=== PATIENT | female | born 1930 | race Caucasian/White ===

== ENCOUNTER → 2016-04-12 | Outpatient (CLI) | payer MEDICARE, OTHER ==
[~2016-04-12] MED LIST: ASPI81TA82 PO; ATOR40TA PO; CARV6.252 PO; CIPR500T4 PO; DEMA10TA PO; ISOS60 PO; MAGN400T PO; NEXI40CA PO; SYNT75TA PO
[2016-04-12 13:23] LABS: HDL CHOLESTEROL 42.7 MG/DL (40.0-60.0); INDIRECT BILIRUBIN 0.4 MG/DL (0.0-0.8); TOTAL BILIRUBIN ADULT 0.5 MG/DL (0.2-1.0)
== END ==
LOC: PLAB 07:55
PROVIDERS: ATTEND Family Medicine
DX: E78.5 Hyperlipidemia, unspecified (principal); Z79.899 Other long term (current) drug therapy
CPT/HCPCS: 36415; 80061; 80076

== ENCOUNTER → 2016-05-02 | Outpatient (CLI) | payer MEDICARE, OTHER ==
[2016-05-02 12:48] LABS: BACTERIA, URINE RARE /hpf; BLOOD, URINE NEG (NEG); GLUCOSE,URINE NEG (NEG); KETONE, URINE NEG (NEG); NITRITE,URINE NEG (NEG); SQUAMOUS EPITHELIAL CELL URINE <1 /hpf (0-5); TRANSITIONAL EPI CELLS, URINE <1 /hpf; URINE COLOR COLORLESS (YELLW/STRAW)
[2016-05-02 13:13] LABS: RHEUMATOID FACTOR TRIGGER LESS THAN 10.0 IU/ML (0.0-14.9)
[2016-05-03 13:05] LABS: ANA SCREEN POS (NEG)
[2016-05-06 15:52] LABS: SM ANTIBODY <1.0 NEG AI (<1.0 NEGATIVE); SM/RNP ANTIBODY <1.0 NEG AI (<1.0 NEGATIVE)
== END ==
LOC: PLAB 09:20
PROVIDERS: ATTEND Allergy & Immunology
DX: M25.50 Pain in unspecified joint (principal)
CPT/HCPCS: 36415; 81001; 82652; 86038; 86039; 86140; 86147; 86160; 86200; 86225; 86235; 86430

== ENCOUNTER → 2016-05-17 | Outpatient (CLI) | payer MEDICARE, OTHER ==
[2016-05-17 13:23] LABS: BLOOD, URINE NEG (NEG); COMMENT (UR) CULT NOT INDICATED; CULTURE IF INDICATED CULT NOT INDICATED; GLUCOSE,URINE NEG (NEG); KETONE, URINE NEG (NEG); NITRITE,URINE NEG (NEG); URINE COLOR LIGHT-YELLOW (YELLW/STRAW)
[2016-05-21 13:52] LABS: SM ANTIBODY <1.0 NEG AI (<1.0 NEGATIVE); SM/RNP ANTIBODY <1.0 NEG AI (<1.0 NEGATIVE)
== END ==
LOC: PLAB 11:11
PROVIDERS: ATTEND Allergy & Immunology
DX: R76.0 Raised antibody titer (principal); N06.4 Isolated proteinuria with diffuse endocapillary proliferative glomerulonephritis
CPT/HCPCS: 36415; 81001; 86160; 86225; 86235

== ENCOUNTER → 2016-09-04 | Outpatient (CLI) | payer MEDICARE, OTHER ==
[2016-09-04 13:32] LABS: AUTOMATED NEUTROPHIL # 8.1 TH/MM3 (1.8-7.7); BASOPHIL # 0.1 TH/MM3 (0-0.2); BASOPHIL % 0.6 % (0.0-2.0); EOSINOPHIL # 0.3 TH/MM3 (0-0.4); EOSINOPHIL % 2.1 % (0.0-4.0); HEMATOCRIT 40.2 % (35.0-46.0); HEMO FLAGS DIFF FINAL; LYMPH % 22.3 % (9.0-44.0); LYMPHOCYTE # 2.7 TH/MM3 (1.0-4.8); MEAN CELL VOLUME 96.1 FL (80.0-100.0); MEAN CORPUSCULAR HGB CONC 32.2 % (32.0-36.0); MONO % 7.7 % (0.0-8.0); NEUT % 67.3 % (16.0-70.0); PLATELET COUNT 177 TH/MM3 (150-450); RED BLOOD COUNT 4.18 MIL/MM3 (4.00-5.30); RED CELL DISTRIBUTION WIDTH 14.1 % (11.6-17.2); WHITE BLOOD COUNT 12.1 TH/MM3 (4.0-11.0)
[2016-09-04 14:13] LABS: ALT (GPT) 27 U/L (10-53); ANION GAP 7 MEQ/L (5-15); AST (GOT) 25 U/L (15-37); BICARBONATE 26.6 MEQ/L (21.0-32.0); BLOOD UREA NITROGEN 24 MG/DL (7-18); CHLORIDE 109 MEQ/L (98-107); GLOMERULAR FILTRATION RATE 57 ML/MIN (>89); GLUCOSE,FASTING 81 MG/DL (74-99); POTASSIUM 3.8 MEQ/L (3.5-5.1); SODIUM (NA) 143 MEQ/L (136-145)
[2016-09-04 14:15] LABS: ALKALINE PHOSPHATASE 87 U/L (45-117); TOTAL BILIRUBIN ADULT 0.3 MG/DL (0.2-1.0)
[2016-09-06 11:51] LABS: RHEUMATOID FACTOR 12 IU/mL (<14)
[2016-09-06 15:52] LABS: ANA SER QL POSITIVE (NEGATIVE); SJOGRENS AB SSA <1.0 NEG AI (<1.0 NEGATIVE); SJOGRENS AB SSB <1.0 NEG AI (<1.0 NEGATIVE)
[2016-09-07 03:50] LABS: ANA IFA PATTERN CENTROMERE (())
[2016-09-08 23:51] LABS: DS DNA AB(CRITHIDIA) NEGATIVE (NEGATIVE); DS DNA AB(CRITHIDIA)TITER ND (<1:10)
== END ==
LOC: PLAB 09:06
PROVIDERS: ATTEND Allergy & Immunology
DX: M25.50 Pain in unspecified joint (principal)
CPT/HCPCS: 36415; 80053; 85025; 86038; 86039; 86235; 86255; 86256; 86431

== ENCOUNTER → 2016-09-25 | Outpatient (CLI) | payer MEDICARE, OTHER ==
[2016-09-25 13:10] LABS: AUTOMATED NEUTROPHIL # 3.5 TH/MM3 (1.8-7.7); BASOPHIL # 0.1 TH/MM3 (0-0.2); BASOPHIL % 0.7 % (0.0-2.0); EOSINOPHIL # 0.3 TH/MM3 (0-0.4); EOSINOPHIL % 3.7 % (0.0-4.0); HEMATOCRIT 41.2 % (35.0-46.0); HEMO FLAGS DIFF FINAL; LYMPHOCYTE # 2.7 TH/MM3 (1.0-4.8); MEAN CELL VOLUME 94.5 FL (80.0-100.0); MEAN CORPUSCULAR HEMOGLOBIN 31.9 PG (27.0-34.0); MEAN CORPUSCULAR HGB CONC 33.7 % (32.0-36.0); MONO % 8.3 % (0.0-8.0); NEUT % 49.3 % (16.0-70.0); PLATELET COUNT 189 TH/MM3 (150-450); RED BLOOD COUNT 4.35 MIL/MM3 (4.00-5.30); RED CELL DISTRIBUTION WIDTH 13.8 % (11.6-17.2); WHITE BLOOD COUNT 7.2 TH/MM3 (4.0-11.0)
[2016-09-25 13:41] LABS: ANION GAP 7 MEQ/L (5-15); AST (GOT) 29 U/L (15-37); BICARBONATE 27.6 MEQ/L (21.0-32.0); BLOOD UREA NITROGEN 33 MG/DL (7-18); CHLORIDE 108 MEQ/L (98-107); GLOMERULAR FILTRATION RATE 54 ML/MIN (>89); POTASSIUM 4.1 MEQ/L (3.5-5.1); SODIUM (NA) 143 MEQ/L (136-145)
[2016-09-25 13:47] LABS: ALKALINE PHOSPHATASE 80 U/L (45-117); ALT (GPT) 26 U/L (10-53); GLUCOSE,FASTING 95 MG/DL (74-99); HDL CHOLESTEROL 44.4 MG/DL (40.0-60.0); LDL CHOLESTEROL 67 MG/DL (0-99); TOTAL BILIRUBIN ADULT 0.4 MG/DL (0.2-1.0)
== END ==
LOC: PLAB 08:18
PROVIDERS: ATTEND Family Medicine
DX: I10 Essential (primary) hypertension (principal); E78.5 Hyperlipidemia, unspecified; M79.1 Myalgia; M25.50 Pain in unspecified joint
CPT/HCPCS: 36415; 80053; 80061; 85025

== ENCOUNTER → 2017-03-10 | Outpatient (CLI) | payer MEDICARE, OTHER ==
[2017-03-10 12:39] LABS: AUTOMATED NEUTROPHIL # 3.9 TH/MM3 (1.8-7.7); BASOPHIL % 0.3 % (0.0-2.0); EOSINOPHIL # 0.3 TH/MM3 (0-0.4); EOSINOPHIL % 3.4 % (0.0-4.0); HEMATOCRIT 40.4 % (35.0-46.0); HEMO FLAGS DIFF FINAL; LYMPH % 48.1 % (9.0-44.0); LYMPHOCYTE # 4.7 TH/MM3 (1.0-4.8); MEAN CELL VOLUME 95.7 FL (80.0-100.0); MEAN CORPUSCULAR HEMOGLOBIN 32.2 PG (27.0-34.0); MEAN CORPUSCULAR HGB CONC 33.6 % (32.0-36.0); MONO % 7.9 % (0.0-8.0); NEUT % 40.3 % (16.0-70.0); PLATELET COUNT 189 TH/MM3 (150-450); RED BLOOD COUNT 4.22 MIL/MM3 (4.00-5.30); RED CELL DISTRIBUTION WIDTH 13.8 % (11.6-17.2); WHITE BLOOD COUNT 9.8 TH/MM3 (4.0-11.0)
[2017-03-10 12:55] LABS: ANION GAP 8 MEQ/L (5-15); AST (GOT) 21 U/L (15-37); BICARBONATE 29.7 MEQ/L (21.0-32.0); BLOOD UREA NITROGEN 35 MG/DL (7-18); CHLORIDE 105 MEQ/L (98-107); GLOMERULAR FILTRATION RATE 45 ML/MIN (>89); GLUCOSE,FASTING 86 MG/DL (74-99); POTASSIUM 3.3 MEQ/L (3.5-5.1); SODIUM (NA) 143 MEQ/L (136-145)
[2017-03-10 13:00] LABS: ALKALINE PHOSPHATASE 89 U/L (45-117); ALT (GPT) 29 U/L (10-53); TOTAL BILIRUBIN ADULT 0.5 MG/DL (0.2-1.0)
== END ==
LOC: PLAB 09:55
PROVIDERS: ATTEND Allergy & Immunology
DX: Z79.899 Other long term (current) drug therapy (principal); Z86.79 Personal history of other diseases of the circulatory system
CPT/HCPCS: 36415; 80053; 85025; 86140

== ENCOUNTER → 2017-03-17 | Outpatient (CLI) | payer MEDICARE, OTHER | LOC: PLAB 08:27 | PROVIDERS: ATTEND Family Medicine | DX: E87.6 Hypokalemia (principal) | CPT/HCPCS: 36415; 84132 ==

== ENCOUNTER → 2017-04-10 | Outpatient (CLI) | payer MEDICARE, OTHER ==
[2017-04-10 15:33] LABS: AUTOMATED NEUTROPHIL # 4.1 TH/MM3 (1.8-7.7); BASOPHIL # 0.1 TH/MM3 (0-0.2); BASOPHIL % 0.8 % (0.0-2.0); EOSINOPHIL # 0.2 TH/MM3 (0-0.4); EOSINOPHIL % 2.5 % (0.0-4.0); HEMOGLOBIN 13.2 GM/DL (11.6-15.3); LYMPH % 34.7 % (9.0-44.0); LYMPHOCYTE # 2.7 TH/MM3 (1.0-4.8); MEAN CELL VOLUME 97.3 FL (80.0-100.0); MEAN CORPUSCULAR HEMOGLOBIN 33.1 PG (27.0-34.0); MEAN PLATELET VOLUME 8.9 FL (7.0-11.0); MONO % 8.4 % (0.0-8.0); MONOCYTE # 0.7 TH/MM3 (0-0.9); NEUT % 53.6 % (16.0-70.0); PLATELET COUNT 191 TH/MM3 (150-450); RED CELL DISTRIBUTION WIDTH 13.8 % (11.6-17.2); WHITE BLOOD COUNT 7.7 TH/MM3 (4.0-11.0)
[2017-04-10 16:04] LABS: ALBUMIN 3.9 GM/DL (3.4-5.0); ALT (GPT) 27 U/L (10-53); AST (GOT) 28 U/L (15-37); BICARBONATE 29.8 MEQ/L (21.0-32.0); BLOOD UREA NITROGEN 17 MG/DL (7-18); CALCIUM 9.3 MG/DL (8.5-10.1); CHLORIDE 108 MEQ/L (98-107); CHOLESTEROL 140 MG/DL (120-200); CREATININE 1.05 MG/DL (0.50-1.00); GLOMERULAR FILTRATION RATE 49 ML/MIN (>89); GLUCOSE,FASTING 88 MG/DL (74-99); SODIUM (NA) 144 MEQ/L (136-145); TRIGLYCERIDES 143 MG/DL (42-150)
[2017-04-10 16:13] LABS: ALKALINE PHOSPHATASE 97 U/L (45-117); CHOLESTEROL/ HDL RATIO 3.18 RATIO; HDL CHOLESTEROL 43.9 MG/DL (40.0-60.0); LDL CHOLESTEROL 68 MG/DL (0-99); TOTAL BILIRUBIN ADULT 0.5 MG/DL (0.2-1.0); TOTAL PROTEIN 7.4 GM/DL (6.4-8.2)
== END ==
LOC: PLAB 08:21
PROVIDERS: ATTEND Family Medicine
DX: E03.9 Hypothyroidism, unspecified (principal); E78.5 Hyperlipidemia, unspecified; I10 Essential (primary) hypertension
CPT/HCPCS: 36415; 80053; 80061; 84443; 85025

== ENCOUNTER → 2017-06-09 | Outpatient (CLI) | payer MEDICARE, OTHER ==
[2017-06-09 11:55] LABS: AUTOMATED NEUTROPHIL # 4.3 TH/MM3 (1.8-7.7); BASOPHIL # 0.1 TH/MM3 (0-0.2); BASOPHIL % 0.8 % (0.0-2.0); EOSINOPHIL # 0.3 TH/MM3 (0-0.4); EOSINOPHIL % 3.2 % (0.0-4.0); HEMATOCRIT 39.8 % (35.0-46.0); HEMOGLOBIN 13.6 GM/DL (11.6-15.3); LYMPH % 34.5 % (9.0-44.0); LYMPHOCYTE # 2.8 TH/MM3 (1.0-4.8); MEAN CELL VOLUME 95.2 FL (80.0-100.0); MEAN CORPUSCULAR HEMOGLOBIN 32.6 PG (27.0-34.0); MEAN CORPUSCULAR HGB CONC 34.2 % (32.0-36.0); MEAN PLATELET VOLUME 8.6 FL (7.0-11.0); MONO % 8.1 % (0.0-8.0); MONOCYTE # 0.7 TH/MM3 (0-0.9); NEUT % 53.4 % (16.0-70.0); PLATELET COUNT 199 TH/MM3 (150-450); RED BLOOD COUNT 4.18 MIL/MM3 (4.00-5.30); WHITE BLOOD COUNT 8.1 TH/MM3 (4.0-11.0)
[2017-06-09 12:21] LABS: ALBUMIN 3.9 GM/DL (3.4-5.0); AST (GOT) 30 U/L (15-37); BICARBONATE 28.5 MEQ/L (21.0-32.0); BLOOD UREA NITROGEN 24 MG/DL (7-18); CALCIUM 9.3 MG/DL (8.5-10.1); CHLORIDE 105 MEQ/L (98-107); CREATININE 1.13 MG/DL (0.50-1.00); GLOMERULAR FILTRATION RATE 45 ML/MIN (>89); SODIUM (NA) 140 MEQ/L (136-145)
[2017-06-09 12:27] LABS: ALKALINE PHOSPHATASE 99 U/L (45-117); ALT (GPT) 23 U/L (10-53); C-REACTIVE PROTEIN LESS THAN 0.29 MG/DL (0.00-0.30); GLUCOSE,RANDOM 93 MG/DL (74-106); TOTAL BILIRUBIN ADULT 0.6 MG/DL (0.2-1.0); TOTAL PROTEIN 7.5 GM/DL (6.4-8.2)
== END ==
LOC: PLAB 08:12
PROVIDERS: ATTEND Allergy & Immunology
DX: E79.0 Hyperuricemia without signs of inflammatory arthritis and tophaceous disease (principal); Z86.79 Personal history of other diseases of the circulatory system
CPT/HCPCS: 36415; 80053; 84550; 85025; 86140

== ENCOUNTER 2017-07-06 15:10 | Observation (INO) | payer MEDICARE, OTHER ==
[~2017-07-06] VITALS: Ht 157.5 cm; Wt 60.0 kg
[2017-07-06] VITALS (7 sets, daily range): BP systolic 114–128; BP diastolic 59–60; PULSE 67–81; RESP 15–29; TEMP 98.5–101.3; O2SAT 92–96
[2017-07-06] MEDS ORDERED: IODIXANOL 320 MG/ML 10 ML VIAL (for Rad CT) IVCONTRAST ONE (15:11)
--- NOTE | 2017-07-06 15:39 | PD ---
HPI Chief Complaint: General Weakness Time Seen by Provider: 15:21 Travel History International Travel<30 days: No Contact w/Intl Traveler<30days: No Traveled to known affect area: No History of Present Illness HPI Patient comes emergency department for evaluation of just not feeling well that began yesterday. Patient reports associated fever. Patient has anything making symptoms better or worse. Denies any chest pain, shortness of breath, cough, headache, numbness or tingling or, loss change in bowel or bladder, or weakness. Patient reports she is on radiation therapy for squamous cell carcinoma last had a treatment the end of June. Denies any chemotherapy. Patient also has concerns over pain in her bilateral neck that he states comes and goes for a while as well as bilateral foot pain described as achy-like in nature. Denies any radiation. Walking or palpating her feet makes the pain worse. Severity mild. PFSH Past Medical History Hx Anticoagulant Therapy: Yes (ASPIRIN ) AAA: Yes Arthritis: Yes Atrial Fibrillation: Yes Autoimmune Disease: No Heart Rhythm Problems: Yes (pacer) Cancer: No Cardiovascular Problems: Yes High Cholesterol: Yes Chemotherapy: Yes Chest Pain: Yes Congestive Heart Failure: No Cerebrovascular Accident: No Diabetes: No Diminished Hearing: No Endocrine: Yes Gastrointestinal Disorders: Yes GERD: Yes Genitourinary: Yes (bladder tuck.) Headaches: Yes Hiatal Hernia: No Hypertension: Yes Immune Disorder: No Implanted Vascular Access Dvce: Yes Kidney Stones: No Musculoskeletal: Yes Neurologic: Yes Reproductive: No Respiratory: No Immunizations Current: No Migraines: Yes Renal Failure: No Seizures: No Thyroid Disease: Yes Ulcer: No Tetanus Vaccination: Unknown Influenza Vaccination: No Menopausal: Yes Past Surgical History Abdominal Aneurysm Repair: Yes Abdominal Surgery: No AICD: No Arteriovenous Shunt: No Cardiac Surgery: Yes (triple a/ pacer) Ear Surgery: No Endocrine Surgery: No Eye Surgery: Yes (bilat. cateract surgery.) Genitourinary Surgery: Yes (bladder tuck.) Gynecologic Surgery: Yes (hysterectomy) Hysterectomy: Yes Insulin Pump: No Joint Replacement: No Oral Surgery: No Pacemaker: Yes (Medtronic.) Thoracic Surgery: Yes Other Surgery: Yes (medtronic pacemaker) Social History Alcohol Use: No Tobacco Use: No Substance Use: No Allergies-Medications (Allergen,Severity, Reaction): Coded Allergies: No Known Allergies (Unverified , 08/21/15) Reported Meds & Prescriptions Reported Meds & Active Scripts Active Reported Aspirin Adult Low Strength (Aspirin) 81 Mg Tabdr 81 Mg PO BID Lipitor (Atorvastatin Calcium) 40 Mg Tab 40 Mg PO HS Isosorbide Mononitrate ER (Isosorbide Mononitrate) 60 Mg Tab 60 Mg PO BID Losartan (Losartan Potassium) 25 Mg Tab 25 Mg PO DAILY Plaquenil (Hydroxychloroquine Sulfate) 200 Mg Tab 200 Mg PO BID Take with food Coreg (Carvedilol) 12.5 Mg Tab 12.5 Mg PO BID Levothyroxine (Levothyroxine Sodium) 50 Mcg Tab 50 Mcg PO DAILY Zyloprim (Allopurinol) 300 Mg Tab 300 Mg PO DAILY Review of Systems Except as stated in HPI: all other systems reviewed are Neg Physical Exam Narrative GENERAL: Well-developed, well nourished, in no acute distress, and non-ill appearing. SKIN: Focused skin assessment warm and dry. There is a small lesion noted on the occipital region of her scalp no signs of infection of a cancerous lesion. No crepitus or drainage. Minimal redness bilateral feet. They are tender to palpation. No crepitus. Millimeters afebrile. Suspicious for gout. HEAD: Atraumatic. Normocephalic. EYES: Pupils equal and round. EOMI. No scleral icterus. No injection or drainage. ENT: No nasal bleeding or discharge. Mucous membranes pink and moist. NECK: Trachea midline. Supple. No nuclear rigidity. Negative Kernig's and Brudzinski sign. CARDIOVASCULAR: Regular rate and rhythm. No murmur appreciated. RESPIRATORY: No accessory muscle use. No respiratory distress. Clear to auscultation. Breath sounds equal bilaterally. GASTROINTESTINAL: Abdomen soft, non-tender, nondistended, and no guarding. Hepatic and splenic margins not palpable. Normal bowel sounds x4. No pulsatile mass. MUSCULOSKELETAL: No obvious deformities. No clubbing. No cyanosis. No edema. Full range of motion. NEUROLOGICAL: Awake and alert. No obvious cranial nerve deficits. Motor grossly within normal limits. Normal speech. PSYCHIATRIC: Appropriate mood and affect; insight and judgment normal. Data Data Last Documented VS Vital Signs Date Time Temp Pulse Resp B/P (MAP) Pulse Ox O2 Delivery O2 Flow Rate FiO2 07/06/17 18:31 101.1 07/06/17 18:24 71 18 96 Room Air 4/1/18 15:15 2.00 Orders Orders Sepsis Workup Initiated (07/06/17 ) Electrocardiogram (07/06/17 15:21) Complete Blood Count With Diff (07/06/17 15:21) Comprehensive Metabolic Panel (07/06/17 15:21) Prothrombin Time / Inr (Pt) (07/06/17 15:21) Act Partial Throm Time (Ptt) (07/06/17 15:21) Lactic Acid Sepsis Protocol (07/06/17 15:21) Magnesium (Mg) (07/06/17 15:21) Ckmb (Isoenzyme) Profile (07/06/17 15:21) Troponin I (07/06/17 15:21) Urinalysis - C+S If Indicated (07/06/17 15:21) Influenzae A/B Antigen (07/06/17 15:21) Blood Culture (07/06/17 15:21) Chest, Single Ap (07/06/17 15:21) Blood Glucose (07/06/17 15:21) Ecg Monitoring (07/06/17 15:21) Iv Access Insert/Monitor (07/06/17 15:21) Oximetry (07/06/17 15:21) Oxygen Administration (07/06/17 15:21) D-Dimer (07/06/17 15:21) Acetaminophen (Tylenol) (07/06/17 15:45) Ct Pulmonary Angiogram (07/06/17 ) CKMB (07/06/17 15:20) CKMB% (07/06/17 15:20) Urine Culture (07/06/17 16:20) Sodium Polysty Sulfate Liq (Kayexalate L (07/06/17 17:00) Ceftriaxone Inj (Rocephin Inj) (07/06/17 17:00) Iodixanol 320 Inj (Rad Ct) (Visipaque 32 (07/06/17 15:11) Foot, Complete ([id number]) (07/06/17 ) Foot, Complete (Oce7qux) (07/06/17 ) Us Leg Venous Doppler Bilat (07/06/17 ) Insulin Human Regular Inj (Novolin R Inj (07/06/17 19:00) Dextrose 50% In Mac (Vial) Inj (D50w (Vi (07/06/17 19:00) Creeler / Telemetry CALEB.Q8H (07/06/17 18:57) Vital Signs (Adult) Q4H (07/06/17 18:57) Diet Heart Healthy (07/06/17 Dinner) Activity Oob With Assistance (07/06/17 18:57) Admit Order (Ed Use Only) (07/06/17 18:57) Labs Laboratory Tests Test 07/06/17 15:20 07/06/17 15:44 07/06/17 16:20 White Blood Count 10.8 TH/MM3 Red Blood Count 3.87 MIL/MM3 Hemoglobin 12.6 GM/DL Hematocrit 36.8 % Mean Corpuscular Volume 95.2 FL Mean Corpuscular Hemoglobin 32.5 PG Mean Corpuscular Hemoglobin Concent 34.2 % Red Cell Distribution Width 13.8 % Platelet Count 169 TH/MM3 Mean Platelet Volume 8.5 FL Neutrophils (%) (Auto) 65.5 % Lymphocytes (%) (Auto) 24.0 % Monocytes (%) (Auto) 9.8 % Eosinophils (%) (Auto) 0.1 % Basophils (%) (Auto) 0.6 % Neutrophils # (Auto) 7.1 TH/MM3 Lymphocytes # (Auto) 2.6 TH/MM3 Monocytes # (Auto) 1.1 TH/MM3 Eosinophils # (Auto) 0.0 TH/MM3 Basophils # (Auto) 0.1 TH/MM3 CBC Comment DIFF FINAL Differential Comment Prothrombin Time 11.4 SEC Prothromb Time International Ratio 1.1 RATIO Activated Partial Thromboplast Time 22.8 SEC D-Dimer Quantitative (PE/DVT) 2.36 MG/L FEU Blood Urea Nitrogen 26 MG/DL Creatinine 1.20 MG/DL Random Glucose 91 MG/DL Total Protein 7.7 GM/DL Albumin 3.3 GM/DL Calcium Level 8.8 MG/DL Magnesium Level 2.2 MG/DL Alkaline Phosphatase 85 U/L Aspartate Amino Transf (AST/SGOT) 94 U/L Alanine Aminotransferase (ALT/SGPT) 40 U/L Total Bilirubin 1.0 MG/DL Sodium Level 137 MEQ/L Potassium Level 5.9 MEQ/L Chloride Level 104 MEQ/L Carbon Dioxide Level 27.7 MEQ/L Anion Gap 5 MEQ/L Estimat Glomerular Filtration Rate 42 ML/MIN Total Creatine Kinase 216 U/L Creatine Kinase MB LESS THAN 0.5 NG/ML Creatine Kinase MB % 0.2 % Troponin I LESS THAN 0.02 NG/ML Lactic Acid Level 1.0 mmol/L Urine Color YELLOW Urine Turbidity CLEAR Urine pH 5.5 Urine Specific Byron 1.012 Urine Protein 30 mg/dL Urine Glucose (UA) NEG mg/dL Urine Ketones NEG mg/dL Urine Occult Blood TRACE Urine Nitrite NEG Urine Bilirubin NEG Urine Urobilinogen LESS THAN 2.0 MG/DL Urine Leukocyte Esterase MOD Urine RBC 1 /hpf Urine WBC 15 /hpf Urine Squamous Epithelial Cells 1 /hpf Urine Transitional Epithelial Cells 1 /hpf Urine Hyaline Casts 8 /lpf Urine Mucus FEW /lpf Microscopic Urinalysis Comment CATH-CULTURE IND MDM Medical Decision Making Medical Screen Exam Complete: Yes Emergency Medical Condition: Yes Interpretation(s) EKG reviewed by Dr. Andrew shows sinus rhythm with ventricular rate of 68. No STEMI. Differential Diagnosis Influenza, UTI, sepsis, metabolic disturbance, pneumonia, PE, atypical chest pain Narrative Course Patient seen and examined. Initial laboratory radiological studies were ordered. Patient was given Tylenol for fever. Upon review of labs patient was given Rocephin and Kayexalate along with insulin and D50. Discussed all findings and plan of care with patient is agreeable for admission. All questions were answered. Discussed patient with Dr. Andrew, who saw and evaluated the patient is in agreement with plan of care and disposition. Discussed patient with hospitalist who is agreeable to admit the patient. All questions were answered. Patient remained stable throughout ED course. Physician Communication Physician Communication [address] Allison, who is agreeable to admit the patient. Diagnosis Primary Impression: Hyperkalemia Additional Impressions: UTI (urinary tract infection) Qualified Codes: N39.0 - Urinary tract infection, site not specified Fever Qualified Codes: R50.9 - Fever, unspecified Admitting Information Admitting Physician Requests: Observation Condition: Stable Mitchell Simpson Jul 06, 2017 15:38
[2017-07-06] MEDS ORDERED: ACETAMINOPHEN 325 MG TAB PO ONE (15:45)
[2017-07-06] MEDS ORDERED: ISOS60TA PO (15:50)
[2017-07-06] MEDS ORDERED: LIPI40TA PO (15:50)
[2017-07-06] MEDS ORDERED: ASPI81TA16 PO (15:50)
[2017-07-06] MEDS ORDERED: CARV12.5 PO (15:50)
[2017-07-06] MEDS ORDERED: ALLO300 PO (15:50)
[2017-07-06] MEDS ORDERED: LEVO50TA4 PO (15:50)
[2017-07-06] MEDS ORDERED: PLAQ200T PO (15:50)
[2017-07-06] MEDS ORDERED: LOSA25TA PO (15:50)
[2017-07-06 15:55] LABS: AUTOMATED NEUTROPHIL # 7.1 TH/MM3 (1.8-7.7); BASOPHIL # 0.1 TH/MM3 (0-0.2); BASOPHIL % 0.6 % (0.0-2.0); EOSINOPHIL % 0.1 % (0.0-4.0); HEMATOCRIT 36.8 % (35.0-46.0); HEMOGLOBIN 12.6 GM/DL (11.6-15.3); LYMPHOCYTE # 2.6 TH/MM3 (1.0-4.8); MEAN CELL VOLUME 95.2 FL (80.0-100.0); MEAN CORPUSCULAR HEMOGLOBIN 32.5 PG (27.0-34.0); MEAN CORPUSCULAR HGB CONC 34.2 % (32.0-36.0); MEAN PLATELET VOLUME 8.5 FL (7.0-11.0); MONO % 9.8 % (0.0-8.0); MONOCYTE # 1.1 TH/MM3 (0-0.9); NEUT % 65.5 % (16.0-70.0); PLATELET COUNT 169 TH/MM3 (150-450); RED BLOOD COUNT 3.87 MIL/MM3 (4.00-5.30); RED CELL DISTRIBUTION WIDTH 13.8 % (11.6-17.2); WHITE BLOOD COUNT 10.8 TH/MM3 (4.0-11.0)
[2017-07-06 16:18] LABS: D-DIMER 2.36 MG/L FEU (0.00-0.50); INTERNATIONAL NORMALIZED RATIO 1.1 RATIO; PROTHROMBIN TIME - PATIENT 11.4 SEC (9.8-11.6)
--- NOTE | 2017-07-06 16:20 | RADRPT ---
EXAM DATE/TIME: 07/06/2017 15:57 [facility] COMPARISON: CHEST SINGLE AP, August 21, 2015, 15:46. INDICATIONS : Fever from unknown source. MEDICAL HISTORY : Hypertension. Hypothyroidism. Aneurysm, abdominal. SURGICAL HISTORY : Abdominal aortic aneurysm repair. CABG. Pacemaker. ENCOUNTER: Initial ACUITY: 1 day PAIN SCORE: 0/10 LOCATION: Bilateral chest FINDINGS: The chest appears stable. Lungs are hyperinflated but otherwise clear. Thoracic aorta is diffusely ectatic. 2 chamber pacemaker is in stable position. Heart remains within normal in size. CONCLUSION: No acute disease. No significant change has occurred. 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 Pacemaker Monty Kat MD on July 06, 2017 at 16:17 Board Certified Radiologist. This report was verified electronically.
[2017-07-06 16:27] LABS: ALBUMIN 3.3 GM/DL (3.4-5.0); ALKALINE PHOSPHATASE 85 U/L (45-117); ALT (GPT) 40 U/L (10-53); AST (GOT) 94 U/L (15-37); BICARBONATE 27.7 MEQ/L (21.0-32.0); BLOOD UREA NITROGEN 26 MG/DL (7-18); CALCIUM 8.8 MG/DL (8.5-10.1); CHLORIDE 104 MEQ/L (98-107); GLOMERULAR FILTRATION RATE 42 ML/MIN (>89); GLUCOSE,RANDOM 91 MG/DL (74-106); MAGNESIUM 2.2 MG/DL (1.5-2.5); SODIUM (NA) 137 MEQ/L (136-145); TOTAL PROTEIN 7.7 GM/DL (6.4-8.2); TROPONIN I LESS THAN 0.02 NG/ML (0.02-0.05)
[2017-07-06 16:37] LABS: BILIRUBIN, URINE NEG (NEG); BLOOD, URINE TRACE (NEG); GLUCOSE,URINE NEG (NEG); HYALINE CAST, URINE 8 /lpf (RARE); KETONE, URINE NEG (NEG); MUCUS URINE FEW /lpf (OCC); NITRITE,URINE NEG (NEG); PH, URINE 5.5 (5.0-8.5); SQUAMOUS EPITHELIAL CELL URINE 1 /hpf (0-5); TRANSITIONAL EPI CELLS, URINE 1 /hpf; URINE COLOR YELLOW (YELLW/STRAW); URINE LEUKOCYTE ESTERASE MOD (NEG)
[2017-07-06] MEDS ORDERED: SODIUM POLYSTYRENE SULFONATE SUSP 15 GM/60 ML CUP PO ONE (17:00)
[2017-07-06] MEDS ORDERED: cefTRIAXone INJ 1,000 MG in SODIUM CHLORIDE 0.9% INJ 100 ML IV ONE (17:00)
--- NOTE | 2017-07-06 18:27 | RADRPT ---
EXAM DATE/TIME: 07/06/2017 18:08 [facility] COMPARISON: CT PULMONARY ANGIOGRAM, August 21, 2015, 17:05. INDICATIONS : Fever and weakness. IV CONTRAST: 75 cc Visipaque (iodixanol) IV RADIATION DOSE: 8.96 CTDIvol (mGy) MEDICAL HISTORY : Aneurysm, abdominal. Hypertension. Brain cancer Thoracic anuersym SURGICAL HISTORY : Pacemaker. ENCOUNTER: Initial ACUITY: 1 day PAIN SCALE: 0/10 LOCATION: chest TECHNIQUE: Volumetric scanning of the chest was performed using a pulmonary embolism protocol MIP images were re constructed. Using automated exposure control and adjustment of the mA and/or kV according to patien t size, radiation dose was kept as low as reasonably achievable to obtain optimal diagnostic quality images. DICOM format image data is available electronically for review and comparison. Follow-up recommendations for detected pulmonary nodules are based at a minimum on nodule size and pa tient risk factors according to Fleischner Society Guidelines. FINDINGS: There are mild dependent atelectatic changes seen. There is fusiform dilatation of the ascending and descending thoracic aorta, atherosclerotic calcifications and coronary artery calcification identifie d. There is no evidence for pulmonary embolism. The ascending aorta has a maximal transverse dimensio n of 4.7 cm at the arch, increased from 2016. Proximal descending thoracic aorta has a maximal transv erse dimension of 4.5 cm, previously 4.35 cm. There is the attenuation of the proximal descending tho racic aorta is heterogeneous, and the possibility of an aortic dissection at this level is difficult to exclude. It is incompletely evaluated on this study. There is a cyst in the left lobe of the liver . The osseous structures are intact. CONCLUSION: Thoracic aortic aneurysmal dilatation is noted and atherosclerosis. An aortic dissection is not exclu ded. There does appear to be some heterogeneous attenuation of the proximal descending thoracic aorta . No evidence for pulmonary embolus. Kamaljit Campoverde MD on July 06, 2017 at 18:21 Board Certified Radiologist. This report was verified electronically.
[2017-07-06] MEDS ORDERED: DEXTROSE 50% IN WATER 50 ML VIAL(D50) IV PUSH ONE (19:00)
[2017-07-06] MEDS ORDERED: INSULIN HUMAN REGULAR 1,000 UNITS/10 ML VIAL IV PUSH ONE (19:00)
--- NOTE | 2017-07-06 19:13 | RADRPT ---
EXAM DATE/TIME: 07/06/2017 18:56 [facility] COMPARISON: No previous studies available for comparison. INDICATIONS : Pain in left foot. MEDICAL HISTORY : None. SURGICAL HISTORY : Bunion srugery 1st toe. ENCOUNTER: Initial ACUITY: 1 day PAIN SCORE: 3/10 LOCATION: Left foot FINDINGS: There are postsurgical changes along the first metatarsal from previous bunion surgery. Plate and scr ew fixation of the base of the first metatarsal noted. There are severe arthritic changes at the firs t MTP joint as well as moderate degenerative changes at the second MTP joint. No acute fracture or di slocation. There is soft tissue calcification seen posterior to the calcaneus. Tiny plantar calcaneal spur. CONCLUSION: No acute disease. Kamaljit Campoverde MD on July 06, 2017 at 19:10 Board Certified Radiologist. This report was verified electronically.
--- NOTE | 2017-07-06 19:16 | RADRPT ---
EXAM DATE/TIME: 07/06/2017 18:56 [facility] COMPARISON: FOOT LEFT COMPLETE ([id number]), July 06, 2017, 18:56. INDICATIONS : Pain in right foot. MEDICAL HISTORY : None. SURGICAL HISTORY : Bunion surgery. ENCOUNTER: Initial ACUITY: 1 day PAIN SCORE: 3/10 LOCATION: Right foot FINDINGS: There are postsurgical changes from previous bunionectomy at the first metatarsal and osteotomy with plate and screw fixation of the base of the first metatarsal. Severe degenerative changes of the firs t MTP joint. Bone density is diminished. No acute fracture or dislocation. Plantar calcaneal spur. CONCLUSION: No acute disease. Kamaljit Campoverde MD on July 06, 2017 at 19:14 Board Certified Radiologist. This report was verified electronically.
--- NOTE | 2017-07-06 19:48 | PD ---
Physical Exam Narrative General: The patient is a well-developed well-nourished female in no acute distress. Head and Neck exam: Head is normocephalic atraumatic. Eyes: EOMI, pupils are equal round and reactive to light. Nose: Midline septum with pink mucous membranes Mouth: Dentition unremarkable. Moist mucus membranes. Posterior oropharynx is not erythematous. No tonsillar hypertrophy. Uvula midline. Airway patent. Neck: No palpable lymphadenopathy. The patient reports having tenderness on palpation along the posterior cervical paraspinal musculature bilaterally. No nuchal rigidity. No thyromegaly. No spinous process tenderness to palpation. No step-off or crepitus. No erythema or ecchymosis. Negative Brudzinski, negative Kernig sign. Cardiovascular: Regular rate and rhythm with a 2/6 systolic murmur. No gallops or rubs. No pulse deficit to the extremities on simultaneous auscultation and palpation of her radial artery. Lungs: Clear to auscultation bilaterally. No wheezes, rhonchi, or rales. Abdomen: Soft, without tenderness to palpation in all 4 quadrants of the abdomen. No guarding, rebound, or rigidity. Normal bowel sounds are audible. No tenderness on palpation of McBurney's point. Extremities: No clubbing, cyanosis, or edema. 2+ pulses in all 4 extremities. No calf tenderness on palpation. Neurologic Exam: Cranial nerves 2-12 were intact on exam. Strength is 5/5 in all 4 extremities. No sensory deficits noted. Negative straight leg raise bilaterally. Skin Exam: No rash noted. Intact skin that is warm and dry. Data Data Last Documented VS Vital Signs Date Time Temp Pulse Resp B/P (MAP) Pulse Ox O2 Delivery O2 Flow Rate FiO2 07/06/17 18:31 101.1 07/06/17 18:24 71 18 96 Room Air 07/06/17 15:15 2.00 Orders Orders Sepsis Workup Initiated (07/06/17 ) Electrocardiogram (07/06/17 15:21) Complete Blood Count With Diff (07/06/17 15:21) Comprehensive Metabolic Panel (07/06/17 15:21) Prothrombin Time / Inr (Pt) (07/06/17 15:21) Act Partial Throm Time (Ptt) (07/06/17 15:21) Lactic Acid Sepsis Protocol (07/06/17 15:21) Magnesium (Mg) (07/06/17 15:21) Ckmb (Isoenzyme) Profile (07/06/17 15:21) Troponin I (07/06/17 15:21) Urinalysis - C+S If Indicated (07/06/17 15:21) Influenzae A/B Antigen (07/06/17 15:21) Blood Culture (07/06/17 15:21) Chest, Single Ap (07/06/17 15:21) Blood Glucose (07/06/17 15:21) Ecg Monitoring (07/06/17 15:21) Iv Access Insert/Monitor (07/06/17 15:21) Oximetry (07/06/17 15:21) Oxygen Administration (07/06/17 15:21) D-Dimer (07/06/17 15:21) Acetaminophen (Tylenol) (07/06/17 15:45) Ct Pulmonary Angiogram (07/06/17 ) CKMB (07/06/17 15:20) CKMB% (07/06/17 15:20) Urine Culture (07/06/17 16:20) Sodium Polysty Sulfate Liq (Kayexalate L (07/06/17 17:00) Ceftriaxone Inj (Rocephin Inj) (07/06/17 17:00) Iodixanol 320 Inj (Rad Ct) (Visipaque 32 (07/06/17 15:11) Foot, Complete ([id number]) (07/06/17 ) Foot, Complete (Tcn2dpj) (07/06/17 ) Us Leg Venous Doppler Bilat (07/06/17 ) Insulin Human Regular Inj (Novolin R Inj (07/06/17 19:00) Dextrose 50% In Mac (Vial) Inj (D50w (Vi (07/06/17 19:00) Photo Lab Specialist / Telemetry CALEB.Q8H (07/06/17 18:57) Vital Signs (Adult) Q4H (07/06/17 18:57) Diet Heart Healthy (07/06/17 Dinner) Activity Oob With Assistance (07/06/17 18:57) Admit Order (Ed Use Only) (07/06/17 18:57) Uric Acid (07/06/17 15:20) Labs Laboratory Tests Test 07/06/17 15:20 07/06/17 15:44 07/06/17 16:20 White Blood Count 10.8 TH/MM3 Red Blood Count 3.87 MIL/MM3 Hemoglobin 12.6 GM/DL Hematocrit 36.8 % Mean Corpuscular Volume 95.2 FL Mean Corpuscular Hemoglobin 32.5 PG Mean Corpuscular Hemoglobin Concent 34.2 % Red Cell Distribution Width 13.8 % Platelet Count 169 TH/MM3 Mean Platelet Volume 8.5 FL Neutrophils (%) (Auto) 65.5 % Lymphocytes (%) (Auto) 24.0 % Monocytes (%) (Auto) 9.8 % Eosinophils (%) (Auto) 0.1 % Basophils (%) (Auto) 0.6 % Neutrophils # (Auto) 7.1 TH/MM3 Lymphocytes # (Auto) 2.6 TH/MM3 Monocytes # (Auto) 1.1 TH/MM3 Eosinophils # (Auto) 0.0 TH/MM3 Basophils # (Auto) 0.1 TH/MM3 CBC Comment DIFF FINAL Differential Comment Prothrombin Time 11.4 SEC Prothromb Time International Ratio 1.1 RATIO Activated Partial Thromboplast Time 22.8 SEC D-Dimer Quantitative (PE/DVT) 2.36 MG/L FEU Blood Urea Nitrogen 26 MG/DL Creatinine 1.20 MG/DL Random Glucose 91 MG/DL Total Protein 7.7 GM/DL Albumin 3.3 GM/DL Calcium Level 8.8 MG/DL Magnesium Level 2.2 MG/DL Uric Acid 6.7 MG/DL Alkaline Phosphatase 85 U/L Aspartate Amino Transf (AST/SGOT) 94 U/L Alanine Aminotransferase (ALT/SGPT) 40 U/L Total Bilirubin 1.0 MG/DL Sodium Level 137 MEQ/L Potassium Level 5.9 MEQ/L Chloride Level 104 MEQ/L Carbon Dioxide Level 27.7 MEQ/L Anion Gap 5 MEQ/L Estimat Glomerular Filtration Rate 42 ML/MIN Total Creatine Kinase 216 U/L Creatine Kinase MB LESS THAN 0.5 NG/ML Creatine Kinase MB % 0.2 % Troponin I LESS THAN 0.02 NG/ML Lactic Acid Level 1.0 mmol/L Urine Color YELLOW Urine Turbidity CLEAR Urine pH 5.5 Urine Specific [place] 1.012 Urine Protein 30 mg/dL Urine Glucose (UA) NEG mg/dL Urine Ketones NEG mg/dL Urine Occult Blood TRACE Urine Nitrite NEG Urine Bilirubin NEG Urine Urobilinogen LESS THAN 2.0 MG/DL Urine Leukocyte Esterase MOD Urine RBC 1 /hpf Urine WBC 15 /hpf Urine Squamous Epithelial Cells 1 /hpf Urine Transitional Epithelial Cells 1 /hpf Urine Hyaline Casts 8 /lpf Urine Mucus FEW /lpf Microscopic Urinalysis Comment CATH-CULTURE IND MDM Medical Record Reviewed: Yes Supervised Visit with SHERRIE: Yes Interpretation(s) Last Impressions Chest X-Ray 07/06/17 1521 Signed Impressions: Service Date/Time: Thursday, July 06, 2017 15:57 - CONCLUSION: No acute disease. No significant change has occurred. 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 Pacemaker Monty Kat MD Lower Extremity Ultrasound 07/06/17 0000 Signed Impressions: Service Date/Time: Thursday, July 06, 2017 19:13 - CONCLUSION: Normal examination. Kamaljit Campoverde MD Foot X-Ray 07/06/17 0000 Signed Impressions: Service Date/Time: Thursday, July 06, 2017 18:56 - CONCLUSION: No acute disease. Kamaljit Campoverde MD Foot X-Ray 07/06/17 0000 Signed Impressions: Service Date/Time: Thursday, July 06, 2017 18:56 - CONCLUSION: No acute disease. Kamaljit Campoverde MD CT Angiography 07/06/17 0000 Signed Impressions: Service Date/Time: Thursday, July 06, 2017 18:08 - CONCLUSION: Thoracic aortic aneurysmal dilatation is noted and atherosclerosis. An aortic dissection is not excluded. There does appear to be some heterogeneous attenuation of the proximal descending thoracic aorta. No evidence for pulmonary embolus. Kamaljit Campoverde MD Vital Signs Date Time Temp Pulse Resp B/P (MAP) Pulse Ox O2 Delivery O2 Flow Rate FiO2 07/06/17 18:31 101.1 07/06/17 18:24 71 18 115/59 (77) 96 Room Air 07/06/17 15:55 72 29 126/59 (81) 96 Room Air 07/06/17 15:38 101.3 07/06/17 15:15 96 Nasal Cannula 2.00 07/06/17 15:15 99.0 67 21 121/60 (80) 07/06/17 15:15 101.3 67 23 121/60 (80) 96 Nasal Cannula 2.00 07/06/17 15:15 Room Air Narrative Course I, Dr. Johnson, have reviewed the advance practice practitioner's documentation and am in agreement, met with the patient face to face, made the diagnosis, and the medical decision making was done by me. The patient was initially evaluated by Steve, the physician staff physical therapy assistant. Please see their complete history and physical. *My assessment and Findings: The patient presents with a history of not feeling well since yesterday. She did not realize that she had a fever until today when she was noted on arrival to the emergency department to have a temp of 103. The patient reports having body aches and generalized weakness. No signs of nuchal rigidity with a negative Brudzinski and negative Kernig sign on exam. During the course of the patient's emergency department visit, the patient's history, examination, and differential diagnosis were reviewed with the patient. The patient was placed on a hospital monitor with oximetry and frequent blood pressure monitoring. The patient had IV access obtained and blood work sent for analysis. The patient was initially provided 650 p.o. 1 for fever. The patient's laboratory studies were reviewed and remarkable for a white count of 10.8, hemoglobin 12.6, platelets 169 with 9.8 monocytes, CMP is remarkable for a potassium of 5.9, BUN 26, creatinine 1.20, uric acid 6.7, AST 94, CPK 216 with an MB percent of 0.2, troponin I less than 0.02. Lactic acid is 1.0, PT PTT within normal limits are unremarkable. D-dimer is elevated at 2.36. CTA was ordered. Urinalysis shows 30 protein trace occult blood moderate leukocyte esterase 15 WBCs, culture indicated. The patient was started on Rocephin 1 g IV. Radiology studies were reviewed and remarkable for a chest x-ray that shows no acute cardiopulmonary disease, CTA to rule out PE shows a thoracic aortic aneurysmal dilatation noted with atherosclerosis, aortic dissection is not excluded. CTA of the aorta has been ordered. No evidence of pulmonary embolism. Bilateral feet x-ray showed no acute abnormality. Lower extremity ultrasound was negative for DVT. The patient's results were discussed with the patient, including the plan of care. I explained that further testing and/ or monitoring is indicated based on the patient's history, examination, and/ or laboratory findings. Therefore, I recommended admission for additional evaluation. The patient expressed understanding and was agreeable with this plan. The patient was admitted to the hospital in stable condition and sent to a bed under the care of the [facility] service. Physician Communication Physician Communication The patient's case including history, pertinent physical examination findings, and laboratory studies were discussed with Dr. Allison. It was agreed that the patient would be admitted to the [facility] service. Diagnosis Primary Impression: Hyperkalemia Additional Impressions: Fever Qualified Codes: R50.9 - Fever, unspecified UTI (urinary tract infection) Qualified Codes: N39.0 - Urinary tract infection, site not specified Admitting Information Admitting Physician Requests: Admit Condition: Stable Lindsey Johnson MD Jul 06, 2017 19:48
--- NOTE | 2017-07-06 19:49 | RADRPT ---
EXAM DATE/TIME: 07/06/2017 19:13 [place] COMPARISON: No previous studies available for comparison. INDICATIONS : Bilateral leg swelling. MEDICAL HISTORY : Aneurysm, abdominal. Hypertension. Thyroid disease. Glasses. Anticoagulant therapy. Atrial fibrillat ion. Arthritis. SURGICAL HISTORY : Abdominal aortic aneurysm repair.Pacemaker. Hysterectomy.Bilateral cataract surgery. Bladder tuck. Bu nions removed from feet. ENCOUNTER: Initial ACUITY: 1 day PAIN SCORE: 5/10 LOCATION: Bilateral legs. TECHNIQUE: Venous ultrasound of the left and right leg was performed from the inguinal ligament to the proximal calf. Real-time, color Doppler and spectral tracing, compression and augmentation techniques were us ed. FINDINGS: RIGHT LEG: There is normal compressibility of the deep venous system from the inguinal region to the proximal ca lf. No echogenic clot is seen in the lumen of the common femoral, femoral, popliteal, and posterior tibial veins. There is a normal response of the venous system to proximal and distal augmentation an d respiration. LEFT LEG: There is normal compressibility of the deep venous system from the inguinal region to the proximal ca lf. No echogenic clot is seen in the lumen of the common femoral, femoral, popliteal, and posterior tibial veins. There is a normal response of the venous system to proximal and distal augmentation an d respiration. CONCLUSION: Normal examination. Kamaljit Campoverde MD on July 06, 2017 at 19:47 Board Certified Radiologist. This report was verified electronically.
[2017-07-06] MEDS ORDERED: MAGNESIUM HYDROXIDE SUSP 30 ML CUP PO PRN (20:00)
[2017-07-06] MEDS ORDERED: LACTULOSE SYRUP 20 GM/30 ML CUP PO PRN (20:00)
[2017-07-06] MEDS ORDERED: ACETAMINOPHEN 325 MG TAB PO PRN (20:00)
[2017-07-06] MEDS ORDERED: NALOXONE HCL 0.4 MG/ML AMP IV PUSH PRN (20:00)
[2017-07-06] MEDS ORDERED: SODIUM CHLORIDE 0.9% FLUSH 10 ML FLUSH IV FLUSH PRN (20:00)
[2017-07-06] MEDS ORDERED: SENNOSIDES 8.6 MG TAB PO PRN (20:00)
[2017-07-06] MEDS ORDERED: BISACODYL 10 MG SUPP RECTAL PRN (20:00)
[2017-07-06] MEDS ORDERED: ONDANSETRON HCL 4 MG/2 ML VIAL IVP PRN (20:00)
[2017-07-06] MEDS ORDERED: IBUPROFEN 400 MG TAB PO ONE (20:00)
--- NOTE | 2017-07-06 20:12 | HHI.HP ---
HPI Service [facility] Primary Care Physician Tara Sullivan MD Admission Diagnosis Hyperkalemia, fever, UTI Diagnoses: Travel History International Travel<30 Days: No Contact w/Intl Traveler <30 Da: No Traveled to Known Affected Are: No History of Present Illness 86-year-old female with a past medical history significant for thoracic aneurysm , history of A. fib with pacemaker, anticoagulated on aspirin, presents to the emergency department for evaluation of weakness and fever since yesterday. The patient reports that she has not been feeling well since yesterday and that she has body aches with fevers and chills. She states that her feet are swollen and exquisitely painful and that she is unable to walk. She also complains of neck pain which has been worse than normal for the past 2-3 days. The patient also has a history of squamous cell carcinoma for which she is on radiation therapy and her last treatment was the end of June. She denies any chest pain or shortness of breath. No abdominal pain. No back pain. No nausea/vomiting/ diarrhea. No cough. Review of Systems Except as stated in HPI: all other systems reviewed are Neg Past Family Social History Past Medical History Thoracic aneurysm History of atrial fibrillation, anticoagulated on aspirin Pacemaker placement for A. fib Past Surgical History Aneurysm repair Bladder tuck Hysterectomy Bilateral cataract Bilateral bunion Reported Medications Reported Meds & Active Scripts Active Reported Aspirin Adult Low Strength (Aspirin) 81 Mg Tabdr 81 Mg PO BID Lipitor (Atorvastatin Calcium) 40 Mg Tab 40 Mg PO HS Isosorbide Mononitrate ER (Isosorbide Mononitrate) 60 Mg Tab 60 Mg PO BID Losartan (Losartan Potassium) 25 Mg Tab 25 Mg PO DAILY Plaquenil (Hydroxychloroquine Sulfate) 200 Mg Tab 200 Mg PO BID Take with food Coreg (Carvedilol) 12.5 Mg Tab 12.5 Mg PO BID Levothyroxine (Levothyroxine Sodium) 50 Mcg Tab 50 Mcg PO DAILY Zyloprim (Allopurinol) 300 Mg Tab 300 Mg PO DAILY Allergies: Coded Allergies: No Known Allergies (Unverified , 08/21/15) Family History Father with CAD Social History Negative for alcohol, tobacco or illicit drugs. Physical Exam Vital Signs Vital Signs Date Time Temp Pulse Resp B/P (MAP) Pulse Ox O2 Delivery O2 Flow Rate FiO2 07/06/17 18:31 101.1 07/06/17 18:24 71 18 115/59 (77) 96 Room Air 07/06/17 15:55 72 29 126/59 (81) 96 Room Air 07/06/17 15:38 101.3 07/06/17 15:15 96 Nasal Cannula 2.00 07/06/17 15:15 99.0 67 21 121/60 (80) 07/06/17 15:15 101.3 67 23 121/60 (80) 96 Nasal Cannula 2.00 07/06/17 15:15 Room Air Physical Exam GENERAL: Thin, female sitting up in bed SKIN: No rashes, ecchymoses or lesions. Cool and dry. HEAD: Atraumatic. Normocephalic. No temporal or scalp tenderness. EYES: Pupils equal round and reactive. Extraocular motions intact. No scleral icterus. No injection or drainage. ENT: Nose without bleeding, purulent drainage or septal hematoma. Throat without erythema, tonsillar hypertrophy or exudate. Uvula midline. Airway patent. NECK: Trachea midline. No JVD or lymphadenopathy. Pain with range of motion of the neck and palpation along the posterior cervical paraspinal musculature. No nuchal rigidity. Negative Babinski, negative Kernig CARDIOVASCULAR: Regular rate and rhythm without murmurs, gallops, or rubs. RESPIRATORY: Clear to auscultation. Breath sounds equal bilaterally. No wheezes , rales, or rhonchi. GASTROINTESTINAL: Abdomen soft, non-tender, nondistended. No hepato-splenomegaly , or palpable masses. No guarding. MUSCULOSKELETAL: Extremities without clubbing, cyanosis, or edema. No joint tenderness, effusion, or edema noted. No calf tenderness. NEUROLOGICAL: Awake and alert. Cranial nerves II through XII intact. Motor and sensory grossly within normal limits. Normal speech. Laboratory Laboratory Tests Test 07/06/17 15:20 07/06/17 15:44 07/06/17 16:20 White Blood Count 10.8 Red Blood Count 3.87 Hemoglobin 12.6 Hematocrit 36.8 Mean Corpuscular Volume 95.2 Mean Corpuscular Hemoglobin 32.5 Mean Corpuscular Hemoglobin Concent 34.2 Red Cell Distribution Width 13.8 Platelet Count 169 Mean Platelet Volume 8.5 Neutrophils (%) (Auto) 65.5 Lymphocytes (%) (Auto) 24.0 Monocytes (%) (Auto) 9.8 Eosinophils (%) (Auto) 0.1 Basophils (%) (Auto) 0.6 Neutrophils # (Auto) 7.1 Lymphocytes # (Auto) 2.6 Monocytes # (Auto) 1.1 Eosinophils # (Auto) 0.0 Basophils # (Auto) 0.1 CBC Comment DIFF FINAL Differential Comment Prothrombin Time 11.4 Prothromb Time International Ratio 1.1 Activated Partial Thromboplast Time 22.8 D-Dimer Quantitative (PE/DVT) 2.36 Blood Urea Nitrogen 26 Creatinine 1.20 Random Glucose 91 Total Protein 7.7 Albumin 3.3 Calcium Level 8.8 Magnesium Level 2.2 Alkaline Phosphatase 85 Aspartate Amino Transf (AST/SGOT) 94 Alanine Aminotransferase (ALT/SGPT) 40 Total Bilirubin 1.0 Sodium Level 137 Potassium Level 5.9 Chloride Level 104 Carbon Dioxide Level 27.7 Anion Gap 5 Estimat Glomerular Filtration Rate 42 Total Creatine Kinase 216 Creatine Kinase MB LESS THAN 0.5 Creatine Kinase MB % 0.2 Troponin I LESS THAN 0.02 Lactic Acid Level 1.0 Urine Color YELLOW Urine Turbidity CLEAR Urine pH 5.5 Urine Specific [place] 1.012 Urine Protein 30 Urine Glucose (UA) NEG Urine Ketones NEG Urine Occult Blood TRACE Urine Nitrite NEG Urine Bilirubin NEG Urine Urobilinogen LESS THAN 2.0 Urine Leukocyte Esterase MOD Urine RBC 1 Urine WBC 15 Urine Squamous Epithelial Cells 1 Urine Transitional Epithelial Cells 1 Urine Hyaline Casts 8 Urine Mucus FEW Microscopic Urinalysis Comment CATH-CULTURE IND Date/Time Source Procedure Growth Status 07/06/17 15:40 Blood Peripheral Aerobic Blood Culture Pending Received 07/06/17 15:40 Blood Peripheral Anaerobic Blood Culture Pending Received 07/06/17 15:50 Nasal Aspirate Influenza Types A,B Antigen (RONAK) - Final NEGATIVE FOR FLU A AND B ANTIGEN.... Complete 07/06/17 16:20 Urine Catheterized Urine Urine Culture Pending Received Result Diagram: 07/06/17 1520 07/06/17 1520 Caprini VTE Risk Assessment Caprini VTE Risk Assessment: Mod/High Risk (score >= 2) Caprini Risk Assessment Model Point Value = 1 Point Value = 2 Point Value = 3 Point Value = 5 Age 41-60 Minor surgery BMI > 25 kg/m2 Swollen legs Varicose veins or History of unexplained or recurrent spontaneous Oral contraceptives or hormone replacement Sepsis (< 1 month) Serious lung disease, including pneumonia (< 1 month) Abnormal pulmonary function Acute myocardial infarction Congestive heart failure (< 1 month) History of inflammatory bowel disease Medical patient at bed rest Age 61-74 Arthroscopic surgery Major open surgery (> 45 min) Laparoscopic surgery (> 45 min) Malignancy Confined to bed (> 72 hours) Immobilizing plaster cast Central venous access Age >= 75 History of VTE Family history of VTE Factor V Leiden Prothrombin [id number] Lupus anticoagulant Anticardiolipin antibodies Elevated serum homocysteine Heparin-induced thrombocytopenia Other congenital or acquired thrombophilia Stroke (< 1 month) Elective arthroplasty Hip, pelvis, or leg fracture Acute spinal cord injury (< 1 month) Prophylaxis Regimen Total Risk Factor Score Risk Level Prophylaxis Regimen 0-1 Low Early ambulation 2 Moderate Order ONE of the following: *Sequential Compression Device (SCD) *Heparin 5000 units SQ BID 3-4 Higher Order ONE of the following medications: *Heparin 5000 units SQ TID *Enoxaparin/Lovenox 40 mg SQ daily (WT < 150 kg, CrCl > 30 mL/min) *Enoxaparin/Lovenox 30 mg SQ daily (WT < 150 kg, CrCl > 10-29 mL/min) *Enoxaparin/Lovenox 30 mg SQ BID (WT < 150 kg, CrCl > 30 mL/min) AND/OR *Sequential Compression Device (SCD) 5 or more Highest Order ONE of the following medications: *Heparin 5000 units SQ TID (Preferred with Epidurals) *Enoxaparin/Lovenox 40 mg SQ daily (WT < 150 kg, CrCl > 30 mL/min) *Enoxaparin/Lovenox 30 mg SQ daily (WT < 150 kg, CrCl > 10-29 mL/min) *Enoxaparin/Lovenox 30 mg SQ BID (WT < 150 kg, CrCl > 30 mL/min) AND *Sequential Compression Device (SCD) Assessment and Plan Assessment and Plan Assessment/plan: 1. Hyperkalemia Status post insulin and Kayexalate in the emergency department No EKG changes, personally reviewed Follow-up BMP at midnight 2. Fever Unknown origin, chest x-ray negative for acute disease, personally reviewed Flu negative UA consistent with urinary tract infection Urine culture pending Blood cultures pending Rocephin 2. UTI Treatment as above 3. Neck pain Acute on chronic No meningeal signs Monitor 4. Chronic kidney disease BUN/creatinine 26/1.20, baseline for the patient Monitor renal function 5. Thoracic aneurysm CTA significant for dilation of the ascending and descending thoracic aorta. Ascending aorta has a dimension of 4.7 cm, increased from 2016. 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
[2017-07-06] MEDS: SODIUM CHLOR 0.9% 1000 ML INJ 1,000 ML IV SCH (20:15)
[2017-07-06] MEDS: HYDROXYCHLOROQUINE SULFATE 200 MG TAB PO SCH (21:00)
[2017-07-06] MEDS: SODIUM CHLORIDE 0.9% FLUSH 10 ML FLUSH IV FLUSH SCH (21:00)
[2017-07-06] MEDS: ISOSORBIDE MONONITRATE 60 MG CR TAB (IMDUR) PO SCH (23:39)
[2017-07-06] MEDS: ASPIRIN EC 81 MG TABEC PO SCH (23:40)
[2017-07-06] MEDS: DOCUSATE SODIUM 50 MG/SENNA 8.6 MG TAB PO SCH (23:40)
[2017-07-06] MEDS: CARVEDILOL 12.5 MG TAB PO SCH (23:40)
[2017-07-06] MEDS: ATORVASTATIN 40 MG TAB PO SCH (23:40)
[2017-07-06] MEDS: HEPARIN SODIUM - SQ 10,000 UNITS/ML VIAL SQ SCH (23:41)
[2017-07-07] VITALS (8 sets, daily range): BP systolic 100–132; BP diastolic 53–70; PULSE 64–74; RESP 16–20; TEMP 97.8–100.1; O2SAT 93–96
[2017-07-07 00:47] LABS: BICARBONATE 26.6 MEQ/L (21.0-32.0); CALCIUM 8.7 MG/DL (8.5-10.1); CREATININE 1.08 MG/DL (0.50-1.00)
[2017-07-07] MEDS: LEVOTHYROXINE SODIUM 50 MCG TAB PO SCH (06:55)
[2017-07-07] MEDS: HEPARIN SODIUM - SQ 10,000 UNITS/ML VIAL SQ SCH ×3 (06:56→20:26)
[2017-07-07 07:20] LABS: AUTOMATED NEUTROPHIL # 7.4 TH/MM3 (1.8-7.7); BASOPHIL # 0.1 TH/MM3 (0-0.2); BASOPHIL % 0.9 % (0.0-2.0); EOSINOPHIL # 0.1 TH/MM3 (0-0.4); HEMATOCRIT 35.4 % (35.0-46.0); HEMOGLOBIN 12.1 GM/DL (11.6-15.3); LYMPH % 23.2 % (9.0-44.0); LYMPHOCYTE # 2.7 TH/MM3 (1.0-4.8); MEAN CELL VOLUME 94.3 FL (80.0-100.0); MEAN CORPUSCULAR HEMOGLOBIN 32.2 PG (27.0-34.0); MEAN CORPUSCULAR HGB CONC 34.2 % (32.0-36.0); MEAN PLATELET VOLUME 8.2 FL (7.0-11.0); MONO % 10.5 % (0.0-8.0); MONOCYTE # 1.2 TH/MM3 (0-0.9); NEUT % 64.4 % (16.0-70.0); PLATELET COUNT 168 TH/MM3 (150-450); RED BLOOD COUNT 3.75 MIL/MM3 (4.00-5.30); RED CELL DISTRIBUTION WIDTH 13.3 % (11.6-17.2); WHITE BLOOD COUNT 11.5 TH/MM3 (4.0-11.0)
[2017-07-07 07:38] LABS: BICARBONATE 28.5 MEQ/L (21.0-32.0); CALCIUM 8.8 MG/DL (8.5-10.1)
[2017-07-07] MEDS: ISOSORBIDE MONONITRATE 60 MG CR TAB (IMDUR) PO SCH ×2 (09:00→20:22)
[2017-07-07] MEDS: SODIUM CHLORIDE 0.9% FLUSH 10 ML FLUSH IV FLUSH SCH ×2 (09:00→20:22)
--- NOTE | 2017-07-07 09:02 | EKG ---
Date Performed: 07/06/2017 Time Performed: 15:24:12 PTAGE: 86 years EKG: Sinus rhythm POSSIBLE LEFT ATRIAL ENLARGEMENT MODERATE INTRAVENTRICULAR CONDUCTION DELAY NONSPECIFIC T-WAVE ABNOR MALITY ABNORMAL ECG PREVIOUS TRACING : 08/22/2015 06.04 Since the previous tracing, no significant change noted DOCTOR: Norbert Gonzales Interpretating Date/Time 07/07/2017 09:01:15
[2017-07-07] MEDS ORDERED: COLCHICINE 0.6 MG TAB PO ONE ×2 (10:00→11:00)
--- NOTE | 2017-07-07 11:59 | HHI.PR ---
Subjective Remarks Follow-up patient with weakness, fever and bilateral foot pain. Patient seen and examined. Patient continues to complain of severe pain in both feet and difficulty with ambulation. She has had bilateral foot surgeries with implanted plates and screws. She has had gout attacks in the feet before. She continues to have right sided neck pain that has been ongoing for the past several weeks is alleviated somewhat with hot shower and application of BenGay. She exhibits no meningeal signs. She denies any headache or vision changes. She does report some dizziness upon standing intermittently. She denies any chest pain or shortness of breath. Denies any nausea, vomiting or abdominal pain. Objective Vitals Vital Signs Date Time Temp Pulse Resp B/P (MAP) Pulse Ox O2 Delivery O2 Flow Rate FiO2 07/07/17 07:41 97.8 64 16 109/59 (76) 95 07/07/17 04:00 98.0 72 20 126/70 (88) 93 07/07/17 00:00 99.4 72 20 129/60 (83) 94 07/06/17 20:30 98.5 76 18 128/60 (82) 92 07/06/17 20:03 70 15 95 Room Air 07/06/17 20:02 101.0 71 15 114/60 (78) 95 Room Air 07/06/17 18:31 101.1 07/06/17 18:24 71 18 115/59 (77) 96 Room Air 07/06/17 15:55 72 29 126/59 (81) 96 Room Air 07/06/17 15:38 101.3 07/06/17 15:15 96 Nasal Cannula 2.00 07/06/17 15:15 99.0 67 21 121/60 (80) 07/06/17 15:15 101.3 67 23 121/60 (80) 96 Nasal Cannula 2.00 07/06/17 15:15 Room Air I/O 07/06/17 07/06/17 07/06/17 07/07/17 07/07/17 07/07/17 06:59 14:59 22:59 06:59 14:59 22:59 Intake Total 200 ml 880 ml Output Total 500 ml Balance 200 ml 380 ml Intake Oral 200 ml 880 ml Output Urine Total 500 ml # Voids 3 # Bowel Movements 2 Result Diagram: 07/07/1731 07/07/17630 Imaging Last Impressions Chest X-Ray 07/06/17 1521 Signed Impressions: Service Date/Time: Thursday, July 06, 2017 15:57 - CONCLUSION: No acute disease. No significant change has occurred. 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 Pacemaker Monty Kat MD Lower Extremity Ultrasound 07/06/17 0000 Signed Impressions: Service Date/Time: Thursday, July 06, 2017 19:13 - CONCLUSION: Normal examination. Kamaljit Campoverde MD Foot X-Ray 07/06/17 0000 Signed Impressions: Service Date/Time: Thursday, July 06, 2017 18:56 - CONCLUSION: No acute disease. Kamaljit Campoverde MD CT Angiography 07/06/17 0000 Signed Impressions: Service Date/Time: Thursday, July 06, 2017 18:08 - CONCLUSION: Thoracic aortic aneurysmal dilatation is noted and atherosclerosis. An aortic dissection is not excluded. There does appear to be some heterogeneous attenuation of the proximal descending thoracic aorta. No evidence for pulmonary embolus. Kamaljit Campoverde MD Objective Remarks GENERAL: Thin, elderly female, INAD. Lying in bed. Awake and alert. SKIN: Cool and dry. HEAD: Atraumatic. Normocephalic. EYES: Extraocular motions intact. No scleral icterus. No injection or drainage. ENT: Nose without bleeding or purulent drainage. Airway patent. MMM. NECK: Trachea midline. Pain with range of motion of the neck and palpation along the right posterior cervical paraspinal musculature. No nuchal rigidity. Negative Babinski, negative Kernig CARDIOVASCULAR: Regular rate and rhythm without murmurs, gallops, or rubs. RESPIRATORY: Clear to auscultation. Breath sounds equal bilaterally. No wheezes , rales, or rhonchi. GASTROINTESTINAL: Abdomen soft, non-tender, nondistended. MUSCULOSKELETAL: Extremities without clubbing, cyanosis. Bilateral feet mildly edematous with erythema noted over 2nd second digits extending over top of foot. Obvious joint deformity R>L. Tender to palpation. NEUROLOGICAL: Awake and alert. Cranial nerves II through XII grossly intact. Motor and sensory grossly within normal limits. Normal speech. Medications and IVs Current Medications Medications (Trade) Dose Ordered Sig/Brendan Route Start Time Stop Time Status Last Admin (NS Flush) 2 ml UNSCH PRN IV FLUSH 07/06/17 20:00 (NS Flush) 2 ml BID IV FLUSH 07/06/17 21:00 (Tylenol) 650 mg Q4H PRN PO 07/06/17 20:00 (Zofran Inj) 4 mg Q6H PRN IVP 07/06/17 20:00 (Narcan Inj) 0.4 mg UNSCH PRN IV PUSH 07/06/17 20:00 (Katie-Colace) 1 tab BID PO 07/06/17 21:00 07/07/17 12:25 (Milk Of Magnesia Liq) 30 ml Q12H PRN PO 07/06/17 20:00 (Senokot) 17.2 mg Q12H PRN PO 07/06/17 20:00 (Dulcolax Supp) 10 mg DAILY PRN RECTAL 07/06/17 20:00 (Lactulose Liq) 30 ml DAILY PRN PO 07/06/17 20:00 Ceftriaxone Sodium 1000 mg/ Sodium Chloride 100 ml @ 200 mls/hr Q24H IV 07/07/17 18:00 Sodium Chloride 1,000 ml @ 70 mls/hr [id number] IV 07/06/17 20:15 07/07/17 14:25 (Heparin Inj) 5,000 units Q8HR SQ 07/06/17 22:00 07/07/17 06:56 (Zyloprim) 300 mg DAILY PO 07/07/17 09:00 Future hold 07/07/17 14:21 (Ecotrin Ec) 81 mg BID PO 07/06/17 21:00 07/07/17 12:25 (Lipitor) 40 mg HS PO 07/06/17 21:00 07/06/17 23:40 (Coreg) 12.5 mg BID PO 07/06/17 21:00 07/07/17 12:24 (Plaquenil) 200 mg BID PO 07/06/17 21:00 07/07/17 12:25 (Imdur) 60 mg BID PO 07/06/17 21:00 07/07/17 09:00 (Synthroid) 50 mcg DAILY@0600 PO 07/07/17 06:00 07/07/17 06:55 (Cozaar) 25 mg DAILY PO 07/07/17 09:00 07/07/17 12:25 (KCl) 40 meq BID PO 07/07/17 09:00 07/07/17 21:01 07/07/17 12:24 (Lidoderm 5% Patch.12 Hr) 1 patch DAILY T-DERMAL 07/07/17 12:00 Miscellaneous Information 1 Q24H T-DERMAL 07/07/17 21:00 A/P Assessment and Plan 86-year-old female with a past medical history significant for thoracic aneurysm , history of A. fib with pacemaker, anticoagulated on aspirin, presents to the emergency department for evaluation of weakness and fever since yesterday. Hyperkalemia, K5.9 -Status post insulin and Kayexalate in the emergency department, now hypokalemic -K 3.0. Po repletion ordered -repeat BMP in am Fever -Tmax 101.3, now afebrile -lactic acid 1.0 -Chest x-ray negative for acute disease. No diarrhea. Patient has hardware in both feet and pacemaker. CTA negative for PE. Doppler studies neg for DVT. Possible gouty acute vs infectious process bilateral feet. -Flu negative -UA consistent mildly c/w urinary tract infection -Blood cultures no growth x 1 day -D/c Rocephin. Consult infectious disease. Start patient on IV Zosyn and Vancomycin (pharmacy to dose). Bilateral foot pain, suspect acute gout exacerbation -uric acid 6.7 -given Colchicine 1.2mg now and 0.6mg in one hour, continue on 0.6mg BID -continue on home dose of Allopurinol -monitor for improvement Bacteruria vs UTI -started on IV Rocephin, discontinue -UCX with immature growth, reincubate, continue to monitor -patient is asymptomatic Neck pain -Acute on chronic -No meningeal signs -Trial of Lidoderm patch -Monitor Atrial fibrillation, rate controlled s/p pacemaker -on ASA as anticoagulation -Continue on Coreg JER on Chronic kidney disease -GFR 42/creatinine /1.20, baseline for patient appears to be around 1 -creatinine improved to 1, GFR 52 -avoid nephrotoxic agents -Monitor renal function Thoracic aneurysm -CTA significant for dilation of the ascending and descending thoracic aorta. Ascending aorta has a dimension of 4.7 cm, increased from 2016. Proximal descending thoracic aorta has a dimension of 4.5 cm, previously 4.35 cm -Patient will follow up as an outpatient with her slip maker -No clinical signs/symptoms of dissection FEN Heart healthy diet Electrolytes: as above Heparin NS at 70 cc/hr Discharge Planning Discharge pending clinical improvement and ID clearance Maria C Waller Jul 07, 2017 11:59
[2017-07-07] MEDS ORDERED: LIDOCAINE HCL 5% PATCH T-DERMAL SCH (12:00)
[2017-07-07] MEDS: CARVEDILOL 12.5 MG TAB PO SCH ×2 (12:24→20:23)
[2017-07-07] MEDS: POTASSIUM CHLORIDE 10 MEQ CONTROLLED RELEASE TAB PO SCH ×2 (12:24→20:23)
[2017-07-07] MEDS: ASPIRIN EC 81 MG TABEC PO SCH ×2 (12:25→20:23)
[2017-07-07] MEDS: DOCUSATE SODIUM 50 MG/SENNA 8.6 MG TAB PO SCH ×2 (12:25→20:22)
[2017-07-07] MEDS: HYDROXYCHLOROQUINE SULFATE 200 MG TAB PO SCH ×2 (12:25→20:23)
[2017-07-07] MEDS: LOSARTAN 25 MG TAB PO SCH (12:25)
--- NOTE | 2017-07-07 14:18 | RADRPT ---
EXAM DATE/TIME: 07/07/2017 13:46 [facility] COMPARISON: No previous studies available for comparison. INDICATIONS : Neck pain, no injury. MEDICAL HISTORY : Hypertension. Gastroesophageal reflux disease. Melanoma SURGICAL HISTORY : Pacemaker. ENCOUNTER: Initial ACUITY: 3 weeks PAIN SCORE: 6/10 LOCATION: Bilateral neck FINDINGS: There is straightening of the cervical lordosis. No evidence of compression deformity or spondylolis thesis. Advanced discogenic degenerative changes at C4-C6 with disc space narrowing and prominent os teophytes both anterior and posterior. On the oblique views, the bony neural foramen remain patent. Prevertebral soft tissue space is normal in thickness. The atlantoaxial articulation is intact. De nse calcification in the region of the carotid bifurcation bilaterally. CONCLUSION: 1. Moderate severity discogenic degenerative changes in the mid cervical spine with associated straig htening of the cervical lordosis. The neural foramen remain patent. 2. No evidence of compression deformity or spondylolisthesis. Russell Sherwood MD on July 07, 2017 at 14:14 Board Certified Radiologist. This report was verified electronically.
[2017-07-07] MEDS: ALLOPURINOL 300 MG TAB PO SCH (14:21)
[2017-07-07] MEDS: SODIUM CHLOR 0.9% 1000 ML INJ 1,000 ML IV SCH (14:25)
[2017-07-07 15:31] LABS: ALBUMIN 3.2 GM/DL (3.4-5.0); DIRECT BILIRUBIN ADULT 0.2 MG/DL (0.0-0.2); PHOSPHORUS 3.5 MG/DL (2.5-4.9)
[2017-07-07 15:40] LABS: INDIRECT BILIRUBIN 0.7 MG/DL (0.0-0.8); TOTAL BILIRUBIN ADULT 0.9 MG/DL (0.2-1.0); TOTAL PROTEIN 6.7 GM/DL (6.4-8.2)
[2017-07-07] MEDS: LIDOCAINE HCL 5% PATCH T-DERMAL SCH (15:45)
[2017-07-07] MEDS ORDERED: Vancomycin Consult Pharmacy 1 EA OTHER SCH (17:30)
[2017-07-07] MEDS ORDERED: cefTRIAXone INJ 1,000 MG in SODIUM CHLORIDE 0.9% INJ 100 ML IV SCH (18:00)
[2017-07-07] MEDS: PIPERACIL-TAZO 4.5 GM PREMIX 100 ML IV SCH (18:34)
[2017-07-07] MEDS ORDERED: VANCOMYCIN 1,000 MG/NS 250 ML IV SCH ×2 (20:00)
[2017-07-07] MEDS ORDERED: VANCOMYCIN INJ 900 MG in SODIUM CHLOR 0.9% 250 ML INJ 250 ML IV SCH (20:00)
[2017-07-07] MEDS: ATORVASTATIN 40 MG TAB PO SCH (20:23)
[2017-07-07] MEDS: REMOVE OLD LIDOCAINE PATCH T-DERMAL SCH (20:24)
[2017-07-08] MEDS: PIPERACIL-TAZO 4.5 GM PREMIX 100 ML IV SCH ×2 (00:52→06:19)
[2017-07-08] MEDS: SODIUM CHLOR 0.9% 1000 ML INJ 1,000 ML IV SCH ×2 (00:52→15:09)
[2017-07-08 04:02] VITALS: BP 90/52; PULSE 59; RESP 17; TEMP 98.5; O2SAT 94
[2017-07-08] MEDS: LEVOTHYROXINE SODIUM 50 MCG TAB PO SCH (06:19)
[2017-07-08] MEDS: HEPARIN SODIUM - SQ 10,000 UNITS/ML VIAL SQ SCH ×3 (06:19→21:21)
[2017-07-08 07:08] LABS: AUTOMATED NEUTROPHIL # 7.3 TH/MM3 (1.8-7.7); BASOPHIL # 0.1 TH/MM3 (0-0.2); BASOPHIL % 0.7 % (0.0-2.0); EOSINOPHIL # 0.1 TH/MM3 (0-0.4); EOSINOPHIL % 0.9 % (0.0-4.0); HEMATOCRIT 32.9 % (35.0-46.0); HEMOGLOBIN 11.3 GM/DL (11.6-15.3); LYMPHOCYTE # 2.4 TH/MM3 (1.0-4.8); MEAN CELL VOLUME 94.2 FL (80.0-100.0); MEAN CORPUSCULAR HEMOGLOBIN 32.4 PG (27.0-34.0); MEAN CORPUSCULAR HGB CONC 34.4 % (32.0-36.0); MEAN PLATELET VOLUME 8.5 FL (7.0-11.0); MONO % 8.1 % (0.0-8.0); MONOCYTE # 0.9 TH/MM3 (0-0.9); NEUT % 68.3 % (16.0-70.0); PLATELET COUNT 173 TH/MM3 (150-450); WHITE BLOOD COUNT 10.8 TH/MM3 (4.0-11.0)
[2017-07-08 07:37] LABS: ALBUMIN 2.8 GM/DL (3.4-5.0); ALT (GPT) 23 U/L (10-53); AST (GOT) 28 U/L (15-37); BICARBONATE 23.5 MEQ/L (21.0-32.0); BLOOD UREA NITROGEN 15 MG/DL (7-18); CALCIUM 8.6 MG/DL (8.5-10.1); CHLORIDE 111 MEQ/L (98-107); CREATININE 0.98 MG/DL (0.50-1.00); GLOMERULAR FILTRATION RATE 54 ML/MIN (>89); GLUCOSE,RANDOM 93 MG/DL (74-106); SODIUM (NA) 142 MEQ/L (136-145)
[2017-07-08 07:39] LABS: ALKALINE PHOSPHATASE 83 U/L (45-117); TOTAL PROTEIN 6.3 GM/DL (6.4-8.2)
[2017-07-08 08:21] VITALS: BP 100/55; PULSE 65; RESP 16; TEMP 98.2; O2SAT 95
[2017-07-08] MEDS: SODIUM CHLORIDE 0.9% FLUSH 10 ML FLUSH IV FLUSH SCH ×2 (09:00→21:21)
[2017-07-08] MEDS: LIDOCAINE HCL 5% PATCH T-DERMAL SCH (10:25)
[2017-07-08] MEDS: ISOSORBIDE MONONITRATE 60 MG CR TAB (IMDUR) PO SCH ×2 (10:27→21:20)
[2017-07-08] MEDS: COLCHICINE 0.6 MG TAB PO SCH ×2 (10:27→21:20)
[2017-07-08] MEDS: ALLOPURINOL 300 MG TAB PO SCH (10:27)
[2017-07-08] MEDS: LOSARTAN 25 MG TAB PO SCH (10:27)
[2017-07-08] MEDS: HYDROXYCHLOROQUINE SULFATE 200 MG TAB PO SCH (10:27)
[2017-07-08] MEDS: DOCUSATE SODIUM 50 MG/SENNA 8.6 MG TAB PO SCH ×2 (10:28→21:20)
[2017-07-08] MEDS: ASPIRIN EC 81 MG TABEC PO SCH ×2 (10:28→21:21)
[2017-07-08] MEDS: CARVEDILOL 12.5 MG TAB PO SCH ×2 (10:28→21:21)
[2017-07-08 11:32] VITALS: BP 99/49; PULSE 65; RESP 16; TEMP 97.5; O2SAT 95
[2017-07-08] MEDS ORDERED: PIPERACIL-TAZO 3.375 GM PREMIX 50 ML IV SCH (12:00)
--- NOTE | 2017-07-08 13:22 | PD.ID.CON ---
History of Present Illness Consult Requested By Dr. Sow Hospitalist service Reason for Consult Evaluation and management of fever and bilateral foot infection Primary Care Physician Tara Sullivan MD Diagnoses: History of Present Illness Patient seen and examined with Dr. Juárez This is a 86-year-old female with a past medical history significant for gout, suspected rheumatoid arthritis on Plaquenil, thoracic aneurysm, history of atrial fibrillation status post pacemaker anticoagulant on aspirin and chronic kidney disease who was admitted for complaints of bilateral foot pain, fever, weakness and not feeling well. Patient also with a history of squamous cell carcinoma status post radiation therapy which was completed in June. Patient also with complaints of acute on chronic neck pain. At admission, patient was found to be hyperkalemic. Chest x-ray was negative for acute process. Flu antigen was negative. UA was suggestive of urinary tract patient patient was started on Rocephin. She was started on colchicine by primary team for possible acute gout attack in the bilateral feet and continued on her allopurinol. Patient was started empirically on IV Zosyn and vancomycin for possible infectious process in both feet. Bilateral lower extremity US negative for DVT. Infectious disease has been consulted for evaluation and management of fever and possible bilateral foot infection. Patient complains of severe pain in both feet and denies any improvement since being started on IV antibiotics and colchicine. She is currently afebrile. 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 Suspected rheumatoid arthritis on Plaquenil Thoracic aneurysm History of atrial fibrillation, anticoagulated on aspirin Pacemaker placement Hypothyroidism Gout Past Surgical History Aneurysm repair Bladder tuck Hysterectomy Bilateral cataract Bilateral bunion Reported Medications Plaquenil (Hydroxychloroquine Sulfate) 200 Mg Tab 200 Mg PO DAILY Take with food Aspirin Adult Low Strength (Aspirin) 81 Mg Tabdr 81 Mg PO BID Lipitor (Atorvastatin Calcium) 40 Mg Tab 40 Mg PO HS Isosorbide Mononitrate ER (Isosorbide Mononitrate) 60 Mg Tab 60 Mg PO BID Losartan (Losartan Potassium) 25 Mg Tab 25 Mg PO DAILY Coreg (Carvedilol) 12.5 Mg Tab 12.5 Mg PO BID Levothyroxine (Levothyroxine Sodium) 50 Mcg Tab 50 Mcg PO DAILY Zyloprim (Allopurinol) 300 Mg Tab 300 Mg PO DAILY Active Ordered Medications Current Medications Medications (Trade) Dose Ordered Sig/Brendan Route Start Time Stop Time Status Last Admin (NS Flush) 2 ml UNSCH PRN IV FLUSH 07/06/17 20:00 (NS Flush) 2 ml BID IV FLUSH 07/06/17 21:00 07/07/17 20:22 (Tylenol) 650 mg Q4H PRN PO 07/06/17 20:00 (Zofran Inj) 4 mg Q6H PRN IVP 07/06/17 20:00 (Narcan Inj) 0.4 mg UNSCH PRN IV PUSH 07/06/17 20:00 (Katie-Colace) 1 tab BID PO 07/06/17 21:00 07/08/17 10:28 (Milk Of Magnesia Liq) 30 ml Q12H PRN PO 07/06/17 20:00 (Senokot) 17.2 mg Q12H PRN PO 07/06/17 20:00 (Dulcolax Supp) 10 mg DAILY PRN RECTAL 07/06/17 20:00 (Lactulose Liq) 30 ml DAILY PRN PO 07/06/17 20:00 Sodium Chloride 1,000 ml @ 70 mls/hr [id number] IV 07/06/17 20:15 07/08/17 00:52 (Heparin Inj) 5,000 units Q8HR SQ 07/06/17 22:00 07/08/17 06:19 (Zyloprim) 300 mg DAILY PO 07/07/17 09:00 Future hold 07/08/17 10:27 (Ecotrin Ec) 81 mg BID PO 07/06/17 21:00 07/08/17 10:28 (Lipitor) 40 mg HS PO 07/06/17 21:00 07/07/17 20:23 (Coreg) 12.5 mg BID PO 07/06/17 21:00 07/08/17 10:28 (Plaquenil) 200 mg BID PO 07/06/17 21:00 07/08/17 10:27 (Imdur) 60 mg BID PO 07/06/17 21:00 07/08/17 10:27 (Synthroid) 50 mcg DAILY@0600 PO 07/07/17 06:00 07/08/17 06:19 (Cozaar) 25 mg DAILY PO 07/07/17 09:00 07/08/17 10:27 Miscellaneous Information 1 Q24H T-DERMAL 07/07/17 21:00 07/07/17 20:24 (Colchicine) 0.6 mg BID PO 07/08/17 09:00 07/10/17 08:59 07/08/17 10:27 (Lidoderm 5% Patch.12 Hr) 1 patch DAILY T-DERMAL 07/07/17 15:30 07/08/17 10:25 Miscellaneous Information SPECIFIC LAB TO BE JOSE... ONCE ONCE .XX 07/10/17 19:45 07/10/17 19:46 Family History Father, CAD Social History Patient denies any alcohol use, tobacco use or illicit drug use. (Maria C Waller) Physical Exam Vital Signs Vital Signs Date Time Temp Pulse Resp B/P (MAP) Pulse Ox O2 Delivery O2 Flow Rate FiO2 07/08/17 11:32 97.5 65 16 99/49 (66) 95 07/08/17 08:21 98.2 65 16 100/55 (70) 95 07/08/17 04:02 98.5 59 17 90/52 (65) 94 07/07/17 23:26 99.3 67 18 100/53 (69) 93 07/07/17 21:36 94 21 07/07/17 20:29 74 17 115/53 (73) 96 07/07/17 16:29 100.1 73 16 105/57 (73) 95 Physical Exam GENERAL: This is a well-nourished, well-developed elderly female patient, in no apparent distress. Awake and alert SKIN: No rashes, ecchymoses or lesions. Cool and dry. HEAD: Atraumatic. Normocephalic. No temporal or scalp tenderness. EYES: Pupils equal round and reactive. Extraocular motions intact. No scleral icterus. No injection or drainage. ENT: Nose without bleeding, purulent drainage or septal hematoma. Throat without erythema, tonsillar hypertrophy or exudate. Uvula midline. Airway patent. NECK: Trachea midline. No lymphadenopathy. Supple, nontender, no meningeal signs. Tenderness to palpation of the right cervical paraspinous muscles. No nuchal rigidity. CARDIOVASCULAR: Regular rate and rhythm 2/6 systolic murmur. RESPIRATORY: Clear to auscultation. Breath sounds equal bilaterally. No wheezes , rales, or rhonchi. GASTROINTESTINAL: Abdomen soft, non-tender, nondistended. No hepato-splenomegaly , or palpable masses. No guarding. MUSCULOSKELETAL: Extremities without clubbing, cyanosis. No calf tenderness. Well-healed surgical incision on top of both feet. Bilateral feet slightly edematous, erythema noted over the right foot second and third digits and left foot second digit and MTP. Deformity noted in the DIP and PIP suggestive of tophi deposits. NEUROLOGICAL: Awake and alert. Cranial nerves II through XII grossly intact. Motor and sensory grossly within normal limits. Five out of 5 muscle strength in all muscle groups. Normal speech. Laboratory Laboratory Tests Test 07/08/17 06:26 07/08/17 06:30 07/08/17 06:36 Erythrocyte Sedimentation Rate 35 Blood Urea Nitrogen 15 Creatinine 0.98 Random Glucose 93 Total Protein 6.3 Albumin 2.8 Calcium Level 8.6 Alkaline Phosphatase 83 Aspartate Amino Transf (AST/SGOT) 28 Alanine Aminotransferase (ALT/SGPT) 23 Total Bilirubin 1.0 Sodium Level 142 Potassium Level 3.5 Chloride Level 111 Carbon Dioxide Level 23.5 Anion Gap 8 Estimat Glomerular Filtration Rate 54 C-Reactive Protein 11.00 White Blood Count 10.8 Red Blood Count 3.50 Hemoglobin 11.3 Hematocrit 32.9 Mean Corpuscular Volume 94.2 Mean Corpuscular Hemoglobin 32.4 Mean Corpuscular Hemoglobin Concent 34.4 Red Cell Distribution Width 14.0 Platelet Count 173 Mean Platelet Volume 8.5 Neutrophils (%) (Auto) 68.3 Lymphocytes (%) (Auto) 22.0 Monocytes (%) (Auto) 8.1 Eosinophils (%) (Auto) 0.9 Basophils (%) (Auto) 0.7 Neutrophils # (Auto) 7.3 Lymphocytes # (Auto) 2.4 Monocytes # (Auto) 0.9 Eosinophils # (Auto) 0.1 Basophils # (Auto) 0.1 CBC Comment DIFF FINAL Differential Comment Date/Time Source Procedure Growth Status 07/06/17 15:40 Blood Peripheral Aerobic Blood Culture - Preliminary NO GROWTH IN 2 DAYS Resulted 07/06/17 15:40 Blood Peripheral Anaerobic Blood Culture - Preliminary NO GROWTH IN 2 DAYS Resulted 07/06/17 15:50 Nasal Aspirate Influenza Types A,B Antigen ([facility]) - Final NEGATIVE FOR FLU A AND B ANTIGEN.... Complete 07/06/17 16:20 Urine Catheterized Urine Urine Culture - Final 50-100,000 CFU/ML MIXED JOSSY... Complete (Maria C Waller) Result Diagram: 07/08/17 0636 07/08/17 0630 Imaging Last Impressions Cervical Spine X-Ray 07/07/17 0000 Signed Impressions: Service Date/Time: Friday, July 07, 2017 13:46 - CONCLUSION: 1. Moderate severity discogenic degenerative changes in the mid cervical spine with associated straightening of the cervical lordosis. The neural foramen remain patent. 2. No evidence of compression deformity or spondylolisthesis. Russell Sherwood MD Chest X-Ray 07/06/17 1521 Signed Impressions: Service Date/Time: Thursday, July 06, 2017 15:57 - CONCLUSION: No acute disease. No significant change has occurred. 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 Pacemaker Monty Kat MD Lower Extremity Ultrasound 07/06/17 0000 Signed Impressions: Service Date/Time: Thursday, July 06, 2017 19:13 - CONCLUSION: Normal examination. Kamaljit Campoverde MD Foot X-Ray 07/06/17 0000 Signed Impressions: Service Date/Time: Thursday, July 06, 2017 18:56 - CONCLUSION: No acute disease. Kamaljit Campoverde MD CT Angiography 07/06/17 0000 Signed Impressions: Service Date/Time: Thursday, July 06, 2017 18:08 - CONCLUSION: Thoracic aortic aneurysmal dilatation is noted and atherosclerosis. An aortic dissection is not excluded. There does appear to be some heterogeneous attenuation of the proximal descending thoracic aorta. No evidence for pulmonary embolus. Kamaljit Campoverde MD (Maria C Waller) Assessment and Plan Assessment and Plan Fever Bilateral foot edema, erythema and joint deformity suspicious for acute gouty flare Acute on chronic neck pain, musculoskeletal JER on CKD Thoracic aneurysm RECS Doubt this is infectious process Likely acute gout exacerbation Recommend discontinuation of IV antibiotics Continue on colchicine and allopurinol If patient fails to improve, consider short course of steroids Monitor fever Monitor clinical course Discussed with patient and family Discussed with primary team (Maria C Waller) Assessment and Plan The exam, history, and the medical decision-making described in the above note were completed with the assistance of the mid-level provider. I reviewed and agree with the findings presented. I attest that I had a [id number] encounter with the patient on the same day, and personally performed physical exam and documented my assessment and findings in the medical record. Reviewed: Plaquanil prescribed by her Skip Tender. She has blood work every 3 months. Pleasant female. LE with tophi like lesions on the MTP jts. Some erythema on dorsum in same vicinity. Knees no erythema Bilateral hands with typical RA deformities swan neck. Recs DC antibiotics observe off them overnight. Continue Rx for gout and plaquanil. If continues to improve possible DC. If overnight fevers and not significantly improved will dw and consider short course of steroids. (Cassidy Juárez MD) Maria C Waller Jul 08, 2017 13:22 Cassidy Juárez MD Jul 08, 2017 22:05
[2017-07-08 15:08] VITALS: BP 107/58; PULSE 67; RESP 16; TEMP 98.2; O2SAT 95
[2017-07-08] MEDS ORDERED: PLAQ200T PO (16:17)
--- NOTE | 2017-07-08 17:01 | HHI.PR ---
Subjective Remarks Follow up for gout, fever. The patient reports minimal improvement of bilateral feet edema, erythema, and pain. She has been able to ambulate only a few steps to the bedside commode. Tmax 100.1 at 4pm yesterday, now afebrile since. She lives alone, does have a walker at home. Denies any other medical complaints including no chest pain, palpitations, shortness of breath, abdominal or urinary complaints. Objective Vitals Vital Signs Date Time Temp Pulse Resp B/P (MAP) Pulse Ox O2 Delivery O2 Flow Rate FiO2 07/08/17 15:08 98.2 67 16 107/58 (74) 95 07/08/17 11:32 97.5 65 16 99/49 (66) 95 07/08/17 08:21 98.2 65 16 100/55 (70) 95 07/08/17 04:02 98.5 59 17 90/52 (65) 94 07/07/17 23:26 99.3 67 18 100/53 (69) 93 07/07/17 21:36 94 21 07/07/17 20:29 74 17 115/53 (73) 96 07/07/17 16:29 100.1 73 16 105/57 (73) 95 I/O 07/07/17 07/07/17 07/07/17 07/08/17 07/08/17 07/08/17 06:59 14:59 22:59 06:59 14:59 22:59 Intake Total 880 ml 500 ml Output Total 500 ml 800 ml Balance 380 ml -300 ml Intake Oral 880 ml 500 ml Output Urine Total 500 ml 800 ml # Voids 3 # Bowel Movements 2 0 Result Diagram: 07/08/17 0636 07/08/17 0630 Imaging Last Impressions Cervical Spine X-Ray 07/07/17 0000 Signed Impressions: Service Date/Time: Friday, July 07, 2017 13:46 - CONCLUSION: 1. Moderate severity discogenic degenerative changes in the mid cervical spine with associated straightening of the cervical lordosis. The neural foramen remain patent. 2. No evidence of compression deformity or spondylolisthesis. Russell Sherwood MD Chest X-Ray 07/06/17 1521 Signed Impressions: Service Date/Time: Thursday, July 06, 2017 15:57 - CONCLUSION: No acute disease. No significant change has occurred. 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 Pacemaker Monty Kat MD Lower Extremity Ultrasound 07/06/17 0000 Signed Impressions: Service Date/Time: Thursday, July 06, 2017 19:13 - CONCLUSION: Normal examination. Kamaljit Campoverde MD Foot X-Ray 07/06/17 0000 Signed Impressions: Service Date/Time: Thursday, July 06, 2017 18:56 - CONCLUSION: No acute disease. Kamaljit Campoverde MD CT Angiography 07/06/17 0000 Signed Impressions: Service Date/Time: Thursday, July 06, 2017 18:08 - CONCLUSION: Thoracic aortic aneurysmal dilatation is noted and atherosclerosis. An aortic dissection is not excluded. There does appear to be some heterogeneous attenuation of the proximal descending thoracic aorta. No evidence for pulmonary embolus. Kamaljit Campoverde MD Objective Remarks GENERAL: Well-nourished, well-developed pleasant elderly female patient in [facility]. SKIN: Warm and dry. No rash. HEENT: Normocephalic. Atraumatic.Pupils equal and round. Mucous membranes pink and moist. NECK: Supple. Trachea midline. CARDIOVASCULAR: Regular rate and rhythm. 2/6 systolic murmur noted. RESPIRATORY: No accessory muscle use. Clear to auscultation. Breath sounds equal bilaterally. GASTROINTESTINAL: Abdomen soft, non-tender, nondistended. Normoactive bowel sounds x4. MUSCULOSKELETAL: No obvious deformities. Extremities without clubbing, cyanosis , or edema. Right foot 2nd & 3rd digits and dorsal MTP joints with erythema/ edema/TTP. Left foot 2nd digit and MTP with erythema/edema/TTP. DIP and PIP joint deformities, right foot worse than left. NEUROLOGICAL: Awake and alert. No obvious cranial nerve deficits. Motor grossly within normal limits. Normal speech. PSYCHIATRIC: Appropriate mood and affect; insight and judgment normal. Medications and IVs Current Medications Medications (Trade) Dose Ordered Sig/Brendan Route Start Time Stop Time Status Last Admin (NS Flush) 2 ml UNSCH PRN IV FLUSH 07/06/17 20:00 (NS Flush) 2 ml BID IV FLUSH 07/06/17 21:00 07/07/17 20:22 (Tylenol) 650 mg Q4H PRN PO 07/06/17 20:00 (Zofran Inj) 4 mg Q6H PRN IVP 07/06/17 20:00 (Narcan Inj) 0.4 mg UNSCH PRN IV PUSH 07/06/17 20:00 (Katie-Colace) 1 tab BID PO 07/06/17 21:00 07/08/17 10:28 (Milk Of Magnesia Liq) 30 ml Q12H PRN PO 07/06/17 20:00 (Senokot) 17.2 mg Q12H PRN PO 07/06/17 20:00 (Dulcolax Supp) 10 mg DAILY PRN RECTAL 07/06/17 20:00 (Lactulose Liq) 30 ml DAILY PRN PO 07/06/17 20:00 Sodium Chloride 1,000 ml @ 70 mls/hr [id number] IV 07/06/17 20:15 07/08/17 00:52 (Heparin Inj) 5,000 units Q8HR SQ 07/06/17 22:00 07/08/17 06:19 (Zyloprim) 300 mg DAILY PO 07/07/17 09:00 Future hold 07/08/17 10:27 (Ecotrin Ec) 81 mg BID PO 07/06/17 21:00 07/08/17 10:28 (Lipitor) 40 mg HS PO 07/06/17 21:00 07/07/17 20:23 (Coreg) 12.5 mg BID PO 07/06/17 21:00 07/08/17 10:28 (Plaquenil) 200 mg BID PO 07/06/17 21:00 07/08/17 10:27 (Imdur) 60 mg BID PO 07/06/17 21:00 07/08/17 10:27 (Synthroid) 50 mcg DAILY@0600 PO 07/07/17 06:00 07/08/17 06:19 (Cozaar) 25 mg DAILY PO 07/07/17 09:00 07/08/17 10:27 Miscellaneous Information 1 Q24H T-DERMAL 07/07/17 21:00 07/07/17 20:24 (Colchicine) 0.6 mg BID PO 07/08/17 09:00 07/10/17 08:59 07/08/17 10:27 (Lidoderm 5% Patch.12 Hr) 1 patch DAILY T-DERMAL 07/07/17 15:30 07/08/17 10:25 A/P Assessment and Plan 86-year-old female with a past medical history significant for thoracic aneurysm , history of A. fib with pacemaker, anticoagulated on aspirin, presents to the emergency department for evaluation of weakness and fever since yesterday. Acute Gout Exacerbation: patient presented with b/l foot pain with obvious joint deformity. Suspect gout flare, however need to rule out infection, patient with hardware in bilateral feet secondary to bunion surgery 15years ago. -uric acid mildly elevated at 6.7 -given Colchicine 1.2mg x1, then 0.6mg x1, then continued on 0.6mg BID -continue on home dose of Allopurinol -consider addition of steroids if no improvement Fever: suspect secondary to acute gout flare as above, rule out infection. Tmax 101.3, now afebrile. Lactic acid 1.0. -CXR negative for acute disease. No diarrhea. Patient has hardware in both feet and pacemaker. CTA negative for PE. Doppler studies neg for DVT. Possible gouty acute vs infectious process bilateral feet. -Flu negative -Urine ulture with mixed santos, discontinue abx -Blood cultures with NGTD -Consult infectious disease, agrees likely gout, will discontinue IV Zosyn and Vanco for now and monitor response of gout treatment as above, discussed with Dr. Juárez. Hyperkalemia: K 5.9 -Status post insulin and Kayexalate in the ED with subsequent hypokalemia K 3.0, given po KCl replacement -repeat BMP shows improvement with K 3.5. Abnormal UA: initially treated for UTI with +fevers, however urine culture with mixed santos, probable contaminants -discontinue IV rocephin -patient is asymptomatic Neck pain: Acute on chronic. No meningeal signs -Trial of Lidoderm patch -Monitor, improved Atrial fibrillation, rate controlled: s/p pacemaker -on ASA as anticoagulation -Continue on Coreg JER on Chronic kidney disease -GFR 42/creatinine /1.20, baseline for patient appears to be around 1 -creatinine improved to 0.98, GFR 54 -avoid nephrotoxic agents -Monitor renal function Thoracic aneurysm -CTA significant for dilation of the ascending and descending thoracic aorta. Ascending aorta has a dimension of 4.7 cm, increased from 2016. Proximal descending thoracic aorta has a dimension of 4.5 cm, previously 4.35 cm -Patient will follow up as an outpatient with her meter engineer -No clinical signs/symptoms of dissection DVT Prophylaxis: Heparin sq Discharge Planning Possible discharge tomorrow if gout flare improves and patient afebrile overnight. PT recommending [facility], consult case management. Maria Fernanda Nelson PA-C Jul 08, 2017 5:01 pm
--- NOTE | 2017-07-08 17:02 | HHI.FF ---
Face to Face Verification Diagnosis: (1) Gout (2) Fever (3) Hyperkalemia (4) Hypothyroid (5) HTN (hypertension) (6) Aortic aneurysm (7) Hyperlipidemia (8) JER (acute kidney injury) Physical Therapy Order: Evaluate and Treat, Improve ambulation, Strength and gait training Home Health Nursing Order: Medical education Signs/symptoms of disease process Nursing assessment with vital signs I have seen patient Gabriella Harmon on 07/08/17. My clinical findings support the need for the requested home health care services because: Ltd mobility - disease progression Deconditioned w/ increased weakness Limited ability to care for self I certify that my clinical findings support that this patient is homebound because: Unsteady gait/balance Unsafe to leave home unassisted Unable to use public transportation Maria Fernanda Nelson PA-C Jul 08, 2017 5:02 pm
[2017-07-08 21:10] VITALS: BP 135/65; PULSE 78; RESP 18; TEMP 98.1; O2SAT 95
[2017-07-08] MEDS ORDERED: TORS10TA2 PO (21:17)
[2017-07-08] MEDS: ATORVASTATIN 40 MG TAB PO SCH (21:20)
[2017-07-08] MEDS: REMOVE OLD LIDOCAINE PATCH T-DERMAL SCH (21:23)
[2017-07-09 02:14] VITALS: BP 120/57; PULSE 69; RESP 16; TEMP 98.5; O2SAT 98
[2017-07-09 04:00] VITALS: PULSE 64
[2017-07-09 05:24] VITALS: BP 126/74; PULSE 70; RESP 17; TEMP 98.7; O2SAT 97
[2017-07-09] MEDS: HEPARIN SODIUM - SQ 10,000 UNITS/ML VIAL SQ SCH ×2 (06:03→14:00)
[2017-07-09] MEDS: LEVOTHYROXINE SODIUM 50 MCG TAB PO SCH (06:03)
[2017-07-09] MEDS: SODIUM CHLOR 0.9% 1000 ML INJ 1,000 ML IV SCH (06:04)
--- NOTE | 2017-07-09 07:26 | HHI.IDPN ---
Subjective Subjective Remarks Patient seen and examined with Dr. Juárez This is a 86-year-old female with a past medical history significant for gout, suspected rheumatoid arthritis on Plaquenil, thoracic aneurysm, history of atrial fibrillation status post pacemaker anticoagulant on aspirin and chronic kidney disease who was admitted for complaints of bilateral foot pain, fever, weakness and not feeling well. Patient also with a history of squamous cell carcinoma status post radiation therapy which was completed in June. Patient also with complaints of acute on chronic neck pain. At admission, patient was found to be hyperkalemic. Chest x-ray was negative for acute process. Flu antigen was negative. UA was suggestive of urinary tract patient patient was started on Rocephin. She was started on colchicine by primary team for possible acute gout attack in the bilateral feet and continued on her allopurinol. Patient was started empirically on IV Zosyn and vancomycin for possible infectious process in both feet. Bilateral lower extremity US negative for DVT. Infectious disease has been consulted for evaluation and management of fever and possible bilateral foot infection. Patient complains of severe pain in both feet and denies any improvement since being started on IV antibiotics and colchicine. Observed overnight off antibiotics Patient seen and examined Patient reports her bilateral foot pain has improved. She has less swelling and redness. 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 Vital Signs Date Time Temp Pulse Resp B/P (MAP) Pulse Ox O2 Delivery O2 Flow Rate FiO2 07/09/17 05:24 98.7 70 17 126/74 (91) 97 07/09/17 04:00 64 07/09/17 02:14 98.5 69 16 120/57 (78) 98 07/08/17 21:10 98.1 78 18 135/65 (88) 95 07/08/17 15:08 98.2 67 16 107/58 (74) 95 07/08/17 11:32 97.5 65 16 99/49 (66) 95 07/08/17 08:21 98.2 65 16 100/55 (70) 95 . Laboratory Tests Test 07/08/17 06:26 07/08/17 06:36 Erythrocyte Sedimentation Rate 35 mm/hr White Blood Count 10.8 TH/MM3 Red Blood Count 3.50 MIL/MM3 Hemoglobin 11.3 GM/DL Hematocrit 32.9 % Mean Corpuscular Volume 94.2 FL Mean Corpuscular Hemoglobin 32.4 PG Mean Corpuscular Hemoglobin Concent 34.4 % Red Cell Distribution Width 14.0 % Platelet Count 173 TH/MM3 Mean Platelet Volume 8.5 FL Neutrophils (%) (Auto) 68.3 % Lymphocytes (%) (Auto) 22.0 % Monocytes (%) (Auto) 8.1 % Eosinophils (%) (Auto) 0.9 % Basophils (%) (Auto) 0.7 % Neutrophils # (Auto) 7.3 TH/MM3 Lymphocytes # (Auto) 2.4 TH/MM3 Monocytes # (Auto) 0.9 TH/MM3 Eosinophils # (Auto) 0.1 TH/MM3 Basophils # (Auto) 0.1 TH/MM3 CBC Comment DIFF FINAL Differential Comment Laboratory Tests Test 07/08/17 06:30 Blood Urea Nitrogen 15 MG/DL Creatinine 0.98 MG/DL Random Glucose 93 MG/DL Total Protein 6.3 GM/DL Albumin 2.8 GM/DL Calcium Level 8.6 MG/DL Alkaline Phosphatase 83 U/L Aspartate Amino Transf (AST/SGOT) 28 U/L Alanine Aminotransferase (ALT/SGPT) 23 U/L Total Bilirubin 1.0 MG/DL Sodium Level 142 MEQ/L Potassium Level 3.5 MEQ/L Chloride Level 111 MEQ/L Carbon Dioxide Level 23.5 MEQ/L Anion Gap 8 MEQ/L Estimat Glomerular Filtration Rate 54 ML/MIN C-Reactive Protein 11.00 MG/DL Microbiology Date/Time Source Procedure Growth Status 07/06/17 15:40 Blood Peripheral Aerobic Blood Culture - Preliminary NO GROWTH IN 2 DAYS Resulted 07/06/17 15:40 Blood Peripheral Anaerobic Blood Culture - Preliminary NO GROWTH IN 2 DAYS Resulted 07/06/17 15:30 Blood Peripheral Aerobic Blood Culture - Preliminary NO GROWTH IN 2 DAYS Resulted 07/06/17 15:30 Blood Peripheral Anaerobic Blood Culture - Preliminary NO GROWTH IN 2 DAYS Resulted 4/1/18 15:50 Nasal Aspirate Influenza Types A,B Antigen ([facility]) - Final NEGATIVE FOR FLU A AND B ANTIGEN.... Complete 07/06/17 16:20 Urine Catheterized Urine Urine Culture - Final 50-100,000 CFU/ML MIXED JOSSY... Complete Imaging Last Impressions Cervical Spine X-Ray 07/07/17 0000 Signed Impressions: Service Date/Time: Friday, July 07, 2017 13:46 - CONCLUSION: 1. Moderate severity discogenic degenerative changes in the mid cervical spine with associated straightening of the cervical lordosis. The neural foramen remain patent. 2. No evidence of compression deformity or spondylolisthesis. Russell Sherwood MD Chest X-Ray 07/06/17 1521 Signed Impressions: Service Date/Time: Thursday, July 06, 2017 15:57 - CONCLUSION: No acute disease. No significant change has occurred. 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 Pacemaker Monty Kat MD Lower Extremity Ultrasound 07/06/17 0000 Signed Impressions: Service Date/Time: Thursday, July 06, 2017 19:13 - CONCLUSION: Normal examination. Kamaljit Campoverde MD Foot X-Ray 07/06/17 0000 Signed Impressions: Service Date/Time: Thursday, July 06, 2017 18:56 - CONCLUSION: No acute disease. Kamaljit Campoverde MD CT Angiography 07/06/17 0000 Signed Impressions: Service Date/Time: Thursday, July 06, 2017 18:08 - CONCLUSION: Thoracic aortic aneurysmal dilatation is noted and atherosclerosis. An aortic dissection is not excluded. There does appear to be some heterogeneous attenuation of the proximal descending thoracic aorta. No evidence for pulmonary embolus. Kamaljit Campoverde MD Physical Exam GENERAL: This is a well-nourished, well-developed elderly female patient, in no apparent distress. Awake and alert. Sitting up in bed. SKIN: No rashes, ecchymoses or lesions. Cool and dry. HEAD: Atraumatic. Normocephalic. EYES: Pupils equal round and reactive. Extraocular motions intact. No scleral icterus. No injection or drainage. ENT: Nose without bleeding or purulent drainage. Airway patent. MMM. No oral thrush. NECK: Trachea midline. No lymphadenopathy. Supple, nontender, no meningeal signs. Tenderness to palpation of the right cervical paraspinous muscles, improved. No nuchal rigidity. CARDIOVASCULAR: Regular rate and rhythm 2/6 systolic murmur. RESPIRATORY: Mild basilar crackles right lung base. GASTROINTESTINAL: Abdomen soft, non-tender, nondistended. No hepato-splenomegaly , or palpable masses. No guarding. MUSCULOSKELETAL: Extremities without clubbing, cyanosis. No calf tenderness. Well-healed surgical incision on top of both feet. Bilateral feet slightly edematous, erythema noted over the right foot second and third digits and left foot second digit and MTP, improved with less edema and erythema. Deformity noted in the DIP and PIP suggestive of tophi deposits. NEUROLOGICAL: Awake and alert. Cranial nerves II through XII grossly intact. Motor and sensory grossly within normal limits. Five out of 5 muscle strength in all muscle groups. Normal speech. PSYCHIATRIC: Calm and pleasant. (Maria C Waller) Assessment & Plan Remarks Fever Bilateral foot edema, erythema and joint deformity suspect acute gout exacerbation On Plaquenil prescribed by Dr. Andrew her [employer] Prescription Clerk for suspected RA Acute on chronic neck pain, musculoskeletal JER on CKD Thoracic aneurysm RECS Doubt this is infectious process likely acute gout exacerbation Improving clinically Recommend discontinuation of IVF Continue on Plaquenil Continue on colchicine and allopurinol per primary team Ok for short course of po steroid burst Recommend patient follow-up with Dr. Zavala as outpatient if symptoms persist or worsen Okay to discharge from ID standpoint Discussed with patient Discussed with Valerie Nelson PA-C (Maria C Waller) Remarks The exam, history, and the medical decision-making described in the above note were completed with the assistance of the mid-level provider. I reviewed and agree with the findings presented. I attest that I had a [id number] encounter with the patient on the same day, and personally performed and documented my assessment and findings in the medical record. Clinically improved off antibiotics on gout treatment alone. No fevers overnight per patient. Ok to use short 2-3 days course of steroids with quick taper. Recommend follow up with within 10 days post discharge. ID follow up if not improving by Friday. Please provide patient with referral to Dr.Reba Zavala Will sign off please call back if any change in clinical condition or questions (Cassidy Juárez MD) Maria C Waller Jul 09, 2017 07:26 Cassidy Juárez MD Jul 09, 2017 11:33
[2017-07-09 07:42] VITALS: BP 146/69; PULSE 68; RESP 16; TEMP 97.6; O2SAT 96
[2017-07-09] MEDS ORDERED: HYDROXYCHLOROQUINE SULFATE 200 MG TAB PO SCH (09:00)
[2017-07-09 10:00] VITALS: PULSE 65
[2017-07-09] MEDS ORDERED: TORSEMIDE 5 MG TAB PO SCH (10:00)
[2017-07-09] MEDS: ISOSORBIDE MONONITRATE 60 MG CR TAB (IMDUR) PO SCH (10:04)
[2017-07-09] MEDS: LOSARTAN 25 MG TAB PO SCH (10:04)
[2017-07-09] MEDS: LIDOCAINE HCL 5% PATCH T-DERMAL SCH (10:04)
[2017-07-09] MEDS: SODIUM CHLORIDE 0.9% FLUSH 10 ML FLUSH IV FLUSH SCH (10:05)
[2017-07-09] MEDS: ASPIRIN EC 81 MG TABEC PO SCH (10:05)
[2017-07-09] MEDS: ALLOPURINOL 300 MG TAB PO SCH (10:05)
[2017-07-09] MEDS: CARVEDILOL 12.5 MG TAB PO SCH (10:05)
[2017-07-09] MEDS: DOCUSATE SODIUM 50 MG/SENNA 8.6 MG TAB PO SCH (10:05)
[2017-07-09] MEDS: COLCHICINE 0.6 MG TAB PO SCH (10:05)
--- NOTE | 2017-07-09 10:10 | HHI.DS ---
Discharge Summary Admission Date Jul 06, 2017 at 6:59 pm Discharge Date: Jul 09, 2017 Admitting Diagnosis Gout flare Hyperkalemia, fever, UTI (1) Gout flare ICD Code: M10.9 - Gout, unspecified Diagnosis: Principal (2) JER (acute kidney injury) ICD Code: N17.9 - Acute kidney failure, unspecified Diagnosis: Secondary Status: Acute Procedures None. Brief History - From Admission 86-year-old female with a past medical history significant for thoracic aneurysm , history of A. fib with pacemaker, anticoagulated on aspirin, presents to the emergency department for evaluation of weakness and fever since yesterday. The patient reports that she has not been feeling well since yesterday and that she has body aches with fevers and chills. She states that her feet are swollen and exquisitely painful and that she is unable to walk. She also complains of neck pain which has been worse than normal for the past 2-3 days. The patient also has a history of squamous cell carcinoma for which she is on radiation therapy and her last treatment was the end of June. She denies any chest pain or shortness of breath. No abdominal pain. No back pain. No nausea/vomiting/ diarrhea. No cough. CBC/BMP: 07/08/17 0636 07/08/17 0630 Significant Findings Laboratory Tests Test 07/06/17 15:20 07/06/17 15:44 07/06/17 16:20 07/07/17 00:08 Red Blood Count 3.87 MIL/MM3 (4.00-5.30) Monocytes (%) (Auto) 9.8 % (0.0-8.0) Monocytes # (Auto) 1.1 TH/MM3 (0-0.9) Activated Partial Thromboplast Time 22.8 SEC (24.3-30.1) D-Dimer Quantitative (PE/DVT) 2.36 MG/L FEU (0.00-0.50) Blood Urea Nitrogen 26 MG/DL (7-18) 24 MG/DL (7-18) Creatinine 1.20 MG/DL (0.50-1.00) 1.08 MG/DL (0.50-1.00) Albumin 3.3 GM/DL (3.4-5.0) Uric Acid 6.7 MG/DL (2.6-6.0) Aspartate Amino Transf (AST/SGOT) 94 U/L (15-37) Potassium Level 5.9 MEQ/L (3.5-5.1) 3.3 MEQ/L (3.5-5.1) Estimat Glomerular Filtration Rate 42 ML/MIN (>89) 48 ML/MIN (>89) Total Creatine Kinase 216 U/L (26-192) Creatine Kinase MB LESS THAN 0.5 NG/ML Troponin I LESS THAN 0.02 NG/ML Urine Protein 30 mg/dL (NEG-TRACE) Urine Occult Blood TRACE (NEG) Urine Leukocyte Esterase MOD (NEG) Urine WBC 15 /hpf (0-5) Urine Mucus FEW /lpf (OCC) Random Glucose 110 MG/DL (74-106) Test 07/07/17 06:31 07/08/17 06:26 07/08/17 06:30 07/08/17 06:36 White Blood Count 11.5 TH/MM3 (4.0-11.0) Red Blood Count 3.75 MIL/MM3 (4.00-5.30) 3.50 MIL/MM3 (4.00-5.30) Monocytes (%) (Auto) 10.5 % (0.0-8.0) 8.1 % (0.0-8.0) Monocytes # (Auto) 1.2 TH/MM3 (0-0.9) Blood Urea Nitrogen 24 MG/DL (7-18) Potassium Level 3.0 MEQ/L (3.5-5.1) Estimat Glomerular Filtration Rate 52 ML/MIN (>89) 54 ML/MIN (>89) Albumin 3.2 GM/DL (3.4-5.0) 2.8 GM/DL (3.4-5.0) 25-Hydroxy Vitamin D Total 22.0 ng/ML (30-100) Erythrocyte Sedimentation Rate 35 mm/hr (0-30) Total Protein 6.3 GM/DL (6.4-8.2) Chloride Level 111 MEQ/L (98-107) C-Reactive Protein 11.00 MG/DL (0.00-0.30) Hemoglobin 11.3 GM/DL (11.6-15.3) Hematocrit 32.9 % (35.0-46.0) Imaging Last Impressions Cervical Spine X-Ray 07/07/17 0000 Signed Impressions: Service Date/Time: Friday, July 07, 2017 13:46 - CONCLUSION: 1. Moderate severity discogenic degenerative changes in the mid cervical spine with associated straightening of the cervical lordosis. The neural foramen remain patent. 2. No evidence of compression deformity or spondylolisthesis. Russell Sherwood MD Chest X-Ray 07/06/17 1521 Signed Impressions: Service Date/Time: Thursday, July 06, 2017 15:57 - CONCLUSION: No acute disease. No significant change has occurred. 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 Pacemaker Monty Kat MD Lower Extremity Ultrasound 07/06/17 0000 Signed Impressions: Service Date/Time: Thursday, July 06, 2017 19:13 - CONCLUSION: Normal examination. Kamaljit Campoverde MD Foot X-Ray 07/06/17 0000 Signed Impressions: Service Date/Time: Thursday, July 06, 2017 18:56 - CONCLUSION: No acute disease. Kamaljit Campoverde MD CT Angiography 07/06/17 0000 Signed Impressions: Service Date/Time: Thursday, July 06, 2017 18:08 - CONCLUSION: Thoracic aortic aneurysmal dilatation is noted and atherosclerosis. An aortic dissection is not excluded. There does appear to be some heterogeneous attenuation of the proximal descending thoracic aorta. No evidence for pulmonary embolus. Kamaljit Campoverde MD PE at Discharge GENERAL: Well-nourished, well-developed pleasant elderly female patient in [facility]. SKIN: Warm and dry. No rash. HEENT: Normocephalic. Atraumatic.Pupils equal and round. Mucous membranes pink and moist. CARDIOVASCULAR: Regular rate and rhythm. 2/6 systolic murmur noted. RESPIRATORY: No accessory muscle use. Clear to auscultation. Breath sounds equal bilaterally. GASTROINTESTINAL: Abdomen soft, non-tender, nondistended. Normoactive bowel sounds x4. MUSCULOSKELETAL: No obvious deformities. Extremities without clubbing, cyanosis , or edema. Right foot 2nd & 3rd digits and dorsal MTP joints with mild erythema /edema/TTP. Left foot 2nd digit and MTP with minimal erythema/edema/TTP. DIP and PIP joint deformities, right foot worse than left. Overall erythema/edema improved. NEUROLOGICAL: Awake and alert. No obvious cranial nerve deficits. Motor grossly within normal limits. Normal speech. PSYCHIATRIC: Appropriate mood and affect; insight and judgment normal. Pt update on day of discharge Follow up for gout flare. The patient reports continued improvement of bilateral foot erythema/edema and pain. She is able to ambulate in her room without difficulty. Denies any further fevers or chills. She feels comfortable going home. Hospital Course 86-year-old female with a past medical history significant for thoracic aneurysm , history of A. fib with pacemaker, anticoagulated on aspirin, presents to the emergency department for evaluation of weakness and fever since yesterday. Acute Gout Exacerbation Bilateral Feet with Intermittent Fever: patient presented with b/l foot pain with obvious joint deformity. Suspect gout flare, however needed to rule out infection, patient with hardware in bilateral feet secondary to bunion surgery 15years ago. Uric acid mildly elevated at 6.7. Given Colchicine 1.2mg x1, then 0.6mg x1, then continued on 0.6mg BID and continued on home dose of Allopurinol. Patient was also given IV antibiotics Vanco/Zosyn for concern for cellulitis as patient with low frade fevers Tmax 101.3, however evaluated by ID, agreed likely gout flare, antibiotics discontinued. Due to fever, CTA was checked and negative, Flu negative, Urine culture with mixed santos likely contaminants, and Blood cultures with NGTD. Symptoms improved and no further fevers after discontinuation of antibiotics. Discussed with ID, recommended 3 day course Prednisone 40mg daily and cleared for discharge. Plan for patient to follow up with ID Dr. Zavala on Friday if no further improvement. PT evaluated patient, recommended [facility], case management arranged. Hyperkalemia: K 5.9. Status post insulin and Kayexalate in the ED with subsequent hypokalemia K 3.0, given po KCl replacement. Repeat BMP shows improvement with K 3.5. Abnormal UA: initially treated for UTI with +fevers, however urine culture with mixed santos, probable contaminants. Discontinued abx. Patient asymptomatic. Neck pain: Acute on chronic. No meningeal signs. Trial of Lidoderm patch. Monitor, improved with heating pad. Atrial fibrillation, rate controlled: s/p pacemaker. on ASA as anticoagulation and coreg for rate control. Stable. JER on Chronic kidney disease. GFR 42/creatinine /1.20, baseline for patient appears to be around 1. Creatinine improved to 0.98, GFR 54. Avoid nephrotoxic agents. Renal function improved and stable. Thoracic aneurysm: CTA significant for dilation of the ascending and descending thoracic aorta. Ascending aorta has a dimension of 4.7 cm, increased from 2016. Proximal descending thoracic aorta has a dimension of 4.5 cm, previously 4.35 cm. 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 No clinical signs/symptoms of dissection Fluid Overload: patient developed mild fluid overload after 3 days of IVF hydration and her torsemide 10mg bid was initially held due to JER. Discontinued fluids, gave IV Lasix 40mg x1, and restarted patient's Torsemide. O2 sat stable on room air. Patient improved. Pt Condition on Discharge: Stable Discharge Disposition: Disch w/ Home Health Serv Discharge Time: > 30 minutes Discharge Instructions DIET: Follow Instructions for: Heart Healthy Diet Activities you can perform: Regular-No Restrictions Follow up Referrals: Infectious Disease - 07/14/17 with Shelia Zavala MD PCP Follow-up - 1 Week with Tara Sullivan MD New Medications: Colchicine (Colcrys) 0.6 Mg Tab 0.6 MG PO BID for Gout for 7 Days, #14 TAB Prednisone (Prednisone) 20 Mg Tab 40 MG PO DAILY for Inflammation for 2 Days, #4 TAB Continued Medications: Allopurinol (Zyloprim) 300 Mg Tab 300 MG PO DAILY for Gout, #30 TAB [address] (Aspirin Adult Low Strength) 81 Mg Tabdr 81 MG PO BID, TAB Atorvastatin (Lipitor) 40 Mg Tab 40 MG PO HS for Cholesterol Management, #30 TAB 0 Refills Carvedilol (Coreg) 12.5 Mg Tab 12.5 MG PO BID, #60 TAB 0 Refills Hydroxychloroquine (Plaquenil) 200 Mg Tab 200 MG PO DAILY for Immunosuppression, #30 TAB 0 Refills Take with food Isosorbide Mononitrate ER (Isosorbide Mononitrate ER) 60 Mg Tab 60 MG PO BID for Prevent Chest Pain, #30 TAB 0 Refills Levothyroxine (Levothyroxine) 50 Mcg Tab 50 MCG PO DAILY for Thyroid, #30 TAB 0 Refills Losartan (Losartan) 25 Mg Tab 25 MG PO DAILY for Blood Pressure Management, #30 TAB 0 Refills Torsemide (Torsemide) 10 Mg Tab 10 MG PO BID, #60 TAB 0 Refills Maria Fernanda Nelson PA-C Jul 09, 2017 10:10 am
[2017-07-09] MEDS ORDERED: FUROSEMIDE 40 MG/4 ML VIAL IV PUSH ONE (10:15)
[2017-07-09] MEDS ORDERED: predniSONE 20 MG TAB PO SCH (10:15)
[2017-07-09] MEDS ORDERED: FUROSEMIDE 20 MG/2 ML VIAL IV PUSH ONE (10:15)
[2017-07-09 11:31] VITALS: BP 120/69; PULSE 63; RESP 16; TEMP 97.7; O2SAT 95
[2017-07-09] MEDS ORDERED: COLC0.6T PO (12:50)
[2017-07-09] MEDS ORDERED: PRED20 PO (12:50)
[2017-07-10] MEDS ORDERED: PHARMACY ORDERED LAB ONE (19:45)
== END 2017-07-09 18:03 | disposition home health service (06) ==
LOC: NEPE 15:10 → NEDA 18:59 → NEPHCDU 20:12
PROVIDERS: ADMIT Internal Medicine; ATTEND Internal Medicine
DX: M1A.9XX1 Chronic gout, unspecified, with tophus (tophi) (principal); E87.5 Hyperkalemia; E50.9 Vitamin A deficiency, unspecified; N39.0 Urinary tract infection, site not specified; E78.00 Pure hypercholesterolemia, unspecified; E87.6 Hypokalemia; E87.70 Fluid overload, unspecified; I48.91 Unspecified atrial fibrillation; L08.9 Local infection of the skin and subcutaneous tissue, unspecified; M54.2 Cervicalgia; G89.29 Other chronic pain; I71.2 Thoracic aortic aneurysm, without rupture; I12.9 Hypertensive chronic kidney disease with stage 1 through stage 4 chronic kidney disease, or unspecified chronic kidney disease; N18.9 Chronic kidney disease, unspecified; M79.89 Other specified soft tissue disorders; M79.671 Pain in right foot; M79.672 Pain in left foot; K21.9 Gastro-esophageal reflux disease without esophagitis; M25.78 Osteophyte, vertebrae; M77.32 Calcaneal spur, left foot; E03.9 Hypothyroidism, unspecified; J44.9 Chronic obstructive pulmonary disease, unspecified; N17.9 Acute kidney failure, unspecified; R94.31 Abnormal electrocardiogram [ECG] [EKG]; Z95.0 Presence of cardiac pacemaker; Z79.899 Other long term (current) drug therapy; Z79.82 Long term (current) use of aspirin; Z85.820 Personal history of malignant melanoma of skin
CPT/HCPCS: 71045; 71275; 72050; 73630; 80048; 80053; 80076; 81001; 82306; 82550; 82552; 83605; 83735; 84100; 84443; 84484; 84550; 85025; 85379; 85610; 85652; 85730; 86021; 86140; 87040; 87086; 87804; 93005; 93970; 94150; 96361; 96365; 96367; 96372; 96375; 97163; 99285; G0378; G8987; G8988; J0696; J1644; J1815; J1940; J2543; J3370; J7030; J7050; J7512; Q9967